=== PATIENT | male | born 1950 | race Caucasian/White ===

== ENCOUNTER 2019-12-07 01:37 | Inpatient (IN) ==
[2019-12-07] MEDS ORDERED: DUONEB (A & A) INH ONE ×2 (01:54→07:40)
--- NOTE | 2019-12-07 02:10 | PROVIDER DOCUMENTATION ---
HPI-Respiratory General - General Chief Complaint: Shortness of Breath Stated Complaint: SOB Time Seen by Provider: 12/07/19 01:53 Source: patient Allergies/Adverse Reactions: Patient Allergies Allergy/AdvReac Type Severity Reaction Status Date / Time iodine Allergy Severe SWELLING Verified 11/18/19 15:02 Home Medications: Home Medication List Medication Instructions Recorded Confirmed Last Taken Type Allopurinol [Zyloprim] 300 mg PO DAILY 12/07/19 12/07/19 Unknown History Codeine Phosphate/Guaifenesin 10 ml PO Q6H PRN PRN 12/07/19 12/07/19 Unknown His tory [Virtussin AC 10-100 mg/5 ml Lq] Levofloxacin [Levaquin] 500 mg PO DAILY 12/07/19 12/07/19 Unknown History - History of Present Illness-Resp Nature of Presenting Problem: Patient is a 69 year old white male with history of COPD, just seen in ER [address] Johansen and noted to have influenza A and lower lobe pneumonia. Patient has already finished Tamiflu and continues to have shortness of breath. Patient saw Dr. Larkin today and started on oral antibiotic for pneumonia. Quality of Pain: reports: aching Onset/Duration: reports: 1 week ago Timing: reports: still present, getting worse Cough Quality/Degree: reports: moderate Similar Symptoms Previously?: No Recently seen or treated by another doctor?: Yes (Dr. Johansen and Dr. Larkin) Review of Systems - Adult - REVIEW OF SYSTEMS - ADULT Constitutional: reports: chills, fever Eyes: reports: no symptoms reported Ears, Nose, Mouth & Throat: reports: see HPI Cardiovascular: denies: chest pain Respiratory: reports: cough, shortness of breath, wheezing Gastrointestinal: reports: no symptoms reported Genitourinary: reports: no symptoms reported Musculoskeletal: reports: muscle aches Integumentary: denies: rash Neurological: reports: no symptoms reported Psychiatric: reports: see HPI, anxiety Endocrine: reports: no symptoms reported Allergic/Immunologic: reports: no symptoms reported All Other Systems: Reviewed and Negative Past History - Adult - PAST MEDICAL HISTORY-ADULT Review of Records: reports: Old Records Reviewed, Nursing Assessment Review, Medications Reviewed, Social history reviewed & non-contributory. Respiratory: reports: pneumonia Gastrointestinal: reports: denies history Musculoskeletal: reports: other (gout) Physical Exam-General - CONSTITUTIONAL General Appearance: alert, mild distress, other (appears ill) - EYES Eyes: other (clear) - HEAD, EARS, NOSE, MOUTH & THROAT HENMT: moist mucous membranes - NECK Neck: supple - RESPIRATORY Respiratory: no respiratory distress, no accessory muscle use, decreased breath sounds, wheezing - CARDIOVASCULAR Cardiovascular: tachycardia - GASTROINTESTINAL (ABDOMEN) Abdominal Exam: non tender, soft, no organomegaly - LYMPHATIC Lymphatic: no adenopathy - MUSCULOSKELETAL Back Exam: normal inspection, no CVA tenderness Extremity: normal range of motion, non-tender - SKIN Integumentary: normal color, warm/dry - NEUROLOGIC Neurologic: grossly normal - PSYCHIATRIC Psych/Mental Status: oriented x 3, anxious Progress - PLAN OF CARE/RESULTS Progress/Plan/Lab Results: Vital Signs - 8 hr 12/07/19 01:41 Temperature 97.5 F L Pulse Rate 113 H Respiratory Rate 20 Blood Pressure 161/91 O2 Sat by Pulse Oximetry 94 L Laboratory Results - last 24 hr 12/07/19 12/07/19 12/07/19 02:10 02:55 02:55 WBC RBC Hgb Hct MCV MCH MCHC RDW Std Deviation Plt Count MPV Immature Gran % (Auto) Neut % (Auto) Lymph % (Auto) [place] % (Auto) Eos % (Auto) Baso % (Auto) Immature Gran # (Auto) Neut # (Auto) Lymph # (Auto) [place] # (Auto) Eos # (Auto) Baso # (Auto) Specimen Type ARTERIAL Sample Site R RADIAL pH 7.35 pCO2 40 pO2 96 HCO3 22.3 Base Excess -3.3 L Oxyhemoglobin 96.1 ABG O2 Sat (Calculated) 22.1 ABG O2 Saturation 98.4 ABG Carboxyhemoglobin 1.40 ABG Methemoglobin 0.9 Prasad Test YES A-a O2 Difference 54.0 Total Hemoglobin 16.3 Lactate 0.80 Liter Flow 2.0 Blood Gas Modality CANNULA FiO2 % 28.0 Sodium 137 Potassium 4.8 Chloride 101 Carbon Dioxide 22 L Anion Gap 14 BUN 20 Creatinine 1.4 H Estimated GFR/1.73 m2 50 BUN/Creatinine Ratio 14 Glucose 116 H Calculated Osmolality 277 Calcium 9.5 Total Bilirubin 0.54 AST 28 ALT 18 Alkaline Phosphatase 82 Puf-[id number]-[id number] Pept Total Protein 8.0 Albumin 3.6 Globulin 4.4 Albumin/Globulin Ratio 0.8 Plasma Lactate 1.1 12/07/19 12/07/19 02:55 02:55 WBC 9.45 RBC 5.10 Hgb 15.4 Hct 47.8 MCV 93.7 MCH 30.2 MCHC 32.2 L RDW Std Deviation 13.6 Plt Count 244 MPV 10.3 Immature Gran % (Auto) 0.2 Neut % (Auto) 71.5 Lymph % (Auto) 14.1 L [place] % (Auto) 7.5 Eos % (Auto) 6.3 Baso % (Auto) 0.4 Immature Gran # (Auto) 0.02 Neut # (Auto) 6.75 H Lymph # (Auto) 1.33 [place] # (Auto) 0.71 H Eos # (Auto) 0.60 Baso # (Auto) 0.04 Specimen Type Sample Site pH pCO2 pO2 HCO3 Base Excess Oxyhemoglobin ABG O2 Sat (Calculated) ABG O2 Saturation ABG Carboxyhemoglobin ABG Methemoglobin Prasad Test A-a O2 Difference Total Hemoglobin Lactate Liter Flow Blood Gas Modality FiO2 % Sodium Potassium Chloride Carbon Dioxide Anion Gap BUN Creatinine Estimated GFR/1.73 m2 BUN/Creatinine Ratio Glucose Calculated Osmolality Calcium Total Bilirubin AST ALT Alkaline Phosphatase Rwh-G-Bvitjazfsap Pept 39 Total Protein Albumin Globulin Albumin/Globulin Ratio Plasma Lactate Orders Category Date Time Status NEWS Score 2-4:Order NEWS Lactate Series NOW Care 12/07/19 01:46 Active Saline Loc NOW Care 12/07/19 01:54 Active CHEST-2 VIEWS [RAD] Stat Exams 12/07/19 01:54 Taken ABG [RESP] Routine Lab 12/07/19 02:10 Completed BLOOD CULTURE [BLDCUL] Stat Lab 12/07/19 03:00 Results CBC WITH DIFF [HEME] Stat Lab 12/07/19 02:55 Completed COMPREHENSIVE METABOLIC PANEL [CHEM] Stat Lab 12/07/19 02:55 Completed LACTATE, PLASMA [CHEM] Stat Lab 12/07/19 02:55 Completed PRO B-NATRIURETIC PEPTIDE Stat Lab 12/07/19 02:55 Completed Albuterol 2.5MG/Ipratrop 0.5MG [Duoneb (A & A)] Med 12/07/19 01:54 Discontinued 3 ml INH NOW ONE Methylprednisolone Sod Succ [Solu-Medrol] Med 12/07/19 04:29 Discontinued 125 mg IV STAT ONE Aerosol Treatments Routine Oth 12/07/19 01:54 Completed Aerosol Treatments Stat Oth 12/07/19 01:54 Completed Pulse Oximetry Stat Oth 12/07/19 01:54 Completed Result Diagrams: 12/07/19 02:55 12/07/19 02:55 - REASSESSMENT Reassessment #1 Time Reassessed: 04:25 Status: unchanged Reassessment Comment: continues to wheeze - EKG 1 Time of EKG reading by physician:: 02:05 EKG Read and Signed by:: Marko Gomez Rate: 113 Rhythm: sinus tach QRS: RBB Comments: no STEMI - XRAY 1 XRAY Study: Chest XRAY Interpretation: NAD - CONSULTS/PCP/HOSPITALIST Notification #1 *Consult/PCP/Hospitalist*: Dr. Rodas, hospitalist Time Discussed: 04:30 Consult Disposition: Admit Departure - Departure Date of Disposition Decision: 12/07/19 Time of Disposition Decision: 04:33 DIAGNOSIS: COPD exacerbation Disposition: ADMITTED INPATIENT 09 Certified Medical Emergency: Emergent Condition: Stable Referrals and Follow-Ups: Gabe Larkin MD [Primary Care Provider] - - Critical Care Note This patient required my direct & personal management of CC.: No Attestation - Physician/ TERRELL Attestation Patient care was provided by Advanced Practice Provider:: No The physician spent face to face time with patient:: Yes Advanced Practice Provider documentation review:: Supervising physician onsite and consulted in the evaluation and care of this patient. The physician did have a face to face encounter with the patient.
[2019-12-07 02:17] LABS: ALLEN TEST YES; BE -3.3 mmoll (-3.0-3.0); BLOOD TYPE ARTERIAL; HCO3-(ACT) 22.3 mmoll (20.0-26.0); METHB 0.9 % (0.0-1.5); O2(CT) 22.1 mL/dL (15.0-23.0); O2HB 96.1 % (95.0-99.0); PCO2(98.6) 40 mmHg (35-45); PO2(98.6) 96 mmHg (60-100); SAMPLE BLOOD; SAO2 98.4 % (95.0-100.0); THB 16.3 g/dL (11.5-17.4); pH(98.6) 7.35 (7.35-7.45)
[2019-12-07 02:18] LABS: MODALITY CANNULA
[2019-12-07 04:03] LABS: BASO# 0.04 X1000 (0.0-0.2); BASO% 0.4 % (0.0-0.8); EOS% 6.3 % (0.0-10.0); HEMATOCRIT 47.8 % (42.0-52.0); HEMOGLOBIN 15.4 g/dL (14.0-18.0); IMM GRAN# 0.02 X1000 (0.0-0.04); IMM GRAN% 0.2 % (0.0-0.5); LYMPH# 1.33 X1000 (1.2-3.4); LYMPH% 14.1 % (20.5-51.1); MCH 30.2 PG (27-31); MCHC 32.2 g/dL (33-37); MCV 93.7 FL (81-99); MONO# 0.71 X1000 (0.11-0.59); MONO% 7.5 % (1.7-9.3); MPV 10.3 FL (7.4-10.4); NEUT# 6.75 X1000 (1.4-6.5); NEUT% 71.5 % (42.2-75.2); PLT 244 X1000 (130-400); RDW 13.6 % (11.5-14.5); WBC 9.45 X1000 (4.8-10.8)
[2019-12-07 04:18] LABS: ALB/GLOB RATIO 0.8; ALBUMIN 3.6 g/dL (3.5-5.0); CALCIUM 9.5 mg/dL (8.8-10.2); CREATININE 1.4 mg/dL (0.7-1.2); POTASSIUM 4.8 mmol/L (3.5-5.1); TOTAL BILIRUBIN 0.54 mg/dL (0.20-1.00)
[2019-12-07] MEDS ORDERED: SOLU-MEDROL IV ONE (04:29)
--- NOTE | 2019-12-07 05:32 | Diag Imaging Result Doc PS360 ---
EXAM: CHEST-2 VIEWS HISTORY: cough TECHNIQUE: Two views COMPARISON: 11/29/2019 FINDINGS: The lungs are hyperexpanded. The heart is not enlarged. The vessels are small. There are no infiltrates. No pleural effusions. IMPRESSION: No pneumonia Electronically signed by Pawan Wiley 12/07/2019 5:29 AM
--- NOTE | 2019-12-07 07:46 | EKG Report ---
Test Performed on : 12/07/2019 02:04:20 AM Test Reason : ER Blood Pressure : / mmHG Vent. Rate : 113 BPM Atrial Rate : 113 BPM P-R Int : 192 ms QRS Dur : 096 ms QT Int : 308 ms P-R-T Axes : 075 224 051 degrees QTc Int : 422 ms Sinus tachycardia. Right superior axis deviation Incomplete right bundle branch block Right ventricular hypertrophy Abnormal ECG No previous ECGs available Unconfirmed Result
[2019-12-07 08:43] LABS: INR 1.06; PROTIME 13.9 Seconds (11.0-16.0)
[2019-12-07] MEDS ORDERED: ZOFRAN IV PRN (08:45)
[2019-12-07] MEDS ORDERED: TYLENOL PO PRN (08:45)
[2019-12-07] MEDS ORDERED: ROBITUSSIN-AC PO PRN (08:50)
[2019-12-07 09:12] LABS: CK INDEX 2.7 (0.0-2.5); CK-MB 12.37 ng/mL (0.0-5.0)
[2019-12-07] MEDS ORDERED: NS 1,000 ML IV SCH (09:15)
--- NOTE | 2019-12-07 09:44 | Diag Imaging Result Doc PS360 ---
CT THORAX W/O CONTRAST - 12/07/2019 INDICATION: Dyspnea,Wheezing,crackles,recent PNA and Flu COMPARISON: Previous chest x-rays FINDINGS: There is no adenopathy. Heart and great vessels are normal. There is mild COPD. Mild diffuse bronchitis. No infiltrates or masses. Upper abdominal images are unremarkable. There are moderate degenerative changes of the spine. No acute or suspicious bony lesion. IMPRESSION: COPD with chronic bronchitis. This exam was performed using automated exposure control, adjustment of mA or kV according to patient size, and/or use of iterative reconstruction technique Electronically signed by Marcelo Meek 12/07/2019 9:41 AM
[2019-12-07 11:41] LABS: CK-MB 12.07 ng/mL (0.0-5.0)
[2019-12-07 11:47] LABS: URINE SOURCE CLEAN CATCH
[2019-12-07 11:50] LABS: BILIRUBIN URINE NEGATIVE (NEGATIVE); BLOOD URINE NEGATIVE (NEGATIVE); COLOR YELLOW; GLUCOSE URINE NEGATIVE (NEGATIVE); KETONE URINE NEGATIVE (NEGATIVE); LEUKOCYTES URINE NEGATIVE (NEGATIVE); NITRITE URINE NEGATIVE (NEGATIVE); PH URINE 5.5; PROTEIN URINE 70 mg/dL (NEGATIVE); SP GRAVITY URINE 1.023; TURBIDITY URINE CLEAR (CLEAR); UROBILINOGEN URINE NORMAL (NORMAL)
[2019-12-07 11:51] LABS: UR EPITHELIAL CELLS <10 /HPF (<10); URINE BACTERIA NEGATIVE /HPF; URINE RBC <10 /HPF (<10); URINE WBC <10 /HPF (<10)
[2019-12-07] MEDS: DUONEB (A & A) INH SCH ×4 (12:03→23:23)
--- NOTE | 2019-12-07 13:26 | PROGRESS NOTE ---
DATE: 12/07/2019 SUBJECTIVE: The patient is still complaining of shortness of breath but compared with admission, it looks like he is feeling just a little bit better. We did a CT scan of the chest that showed COPD with chronic bronchitis. Recently, he was started on treatment for pneumonia. He is tachycardic. He has been tachypneic on and off. He is on oxygen at this moment as well. Apparently, he is having respiratory problems since the end of October 2019. He has been visiting multiple doctors afterwards. He has been getting treatment mostly with antibiotics, but it looks like this has not been working. He has been placed on steroids but he is still wheezing a lot, so I will increase the dose from 40 q.12 hours to q6h also, I will put him on antibiotics. I will start with Zosyn and I will keep an eye on him. He has been placed on respiratory treatment as well. PHYSICAL EXAMINATION: Vital signs: Temperature 97.8 degrees, pulse 101, respiratory rate 19, blood pressure 154/97, oxygen saturation 97% on 3 L of nasal cannula. HEENT: Head normocephalic, no trauma. PERRLA. Neck: Supple. No JVD. No masses. Central trachea. Chest: Decreased breath sounds globally with prolonged expiratory phase and inspiratory and expiratory wheezing, some crepitus at the bases. Abdomen: Soft, protuberant, nontender, nondistended. No hepatosplenomegaly. Genitourinary: As per the patient, he has been having problems urinating, a little bit of redness in the gland of the penis, but I do not see any pus or infection. Extremities: No edema, no clubbing, no cyanosis. Neurological: Patient is awake, he is alert, he is oriented x3. No focal neurological deficits. LABORATORY DATA: WBC 9.4, hemoglobin 15.4, hematocrit 47.8, platelets 244,000. Sodium 137, potassium 4.8, chloride 101, bicarbonate 22, BUN 20, creatinine 1.4, glucose 116, calcium 9.5. ASSESSMENT AND PLAN: 1. Acute hypoxemic respiratory failure. Continue with oxygen supplementation, breathing treatment, pulmonary toilet, likely due to bronchitis and/or chronic obstructive pulmonary disease exacerbation. This patient has never been diagnosed with chronic obstructive pulmonary disease before but he used be a smoker, as per the patient, he smoked for at least 25 years and about less than 1 pack a day. 2. Possible chronic obstructive pulmonary disease exacerbation and bronchitis. As above, continue with antibiotics, breathing treatments, oxygen supplementation and steroids. 3. History of tobacco use. This patient stopped smoking a long time ago, I think in the . 4. Gout, stable. He is on allopurinol at home which I will continue. 5. History of multiple history of previous urinary tract infections. As per the patient, he had a couple surgeries before on his penis, and he has been having some problems urinating. Likely this patient will need to be evaluated by Urology Department either inpatient or outpatient. Urinalysis completely normal. 6. The patient will be transferred to the medical floor. Continue with the same management. He will need to follow up with Pulmonary Department as an outpatient as well to do a PFT and probably do a sleep study. cc: Michael Chavez MD MTDD
[2019-12-07 14:06] LABS: BASO# 0.01 X1000 (0.0-0.2); BASO% 0.2 % (0.0-0.8); EOS# 0.02 X1000 (0.0-0.7); EOS% 0.4 % (0.0-10.0); HEMATOCRIT 46.3 % (42.0-52.0); HEMOGLOBIN 14.9 g/dL (14.0-18.0); LYMPH# 0.58 X1000 (1.2-3.4); MCH 30.3 PG (27-31); MCHC 32.2 g/dL (33-37); MCV 94.1 FL (81-99); MONO# 0.07 X1000 (0.11-0.59); MONO% 1.6 % (1.7-9.3); MPV 10.4 FL (7.4-10.4); NEUT# 3.77 X1000 (1.4-6.5); NEUT% 84.8 % (42.2-75.2); PLT 244 X1000 (130-400); RBC 4.92 XMIL (4.7-6.1); RDW 13.7 % (11.5-14.5); WBC 4.45 X1000 (4.8-10.8)
[2019-12-07] MEDS: ZOSYN 3.375 GM in NS 50 ML IV SCH ×2 (14:19→21:10)
[2019-12-07] MEDS: SOLU-MEDROL IV SCH ×2 (14:19→21:11)
[2019-12-07 14:54] LABS: ALBUMIN 3.8 g/dL (3.5-5.0); CALCIUM 9.7 mg/dL (8.8-10.2); CREATININE 1.5 mg/dL (0.7-1.2); POTASSIUM 4.9 mmol/L (3.5-5.1); TOTAL BILIRUBIN 0.34 mg/dL (0.20-1.00); TOTAL PROTEIN 7.5 g/dL (6.3-8.3)
[2019-12-07 14:55] LABS: PTT 26.4 Seconds (22.3-41.8)
[2019-12-07 14:56] LABS: PROTIME 13.3 Seconds (11.0-16.0)
[2019-12-07 15:32] LABS: CK INDEX 3.2 (0.0-2.5); CK-MB 11.58 ng/mL (0.0-5.0)
--- NOTE | 2019-12-07 15:46 | Diag Imaging Result Doc PS360 ---
CHEST-1 VIEW - 12/07/2019 3:25 PM INDICATION: increased lactate COMPARISON: 2:18 AM FINDINGS: The lungs are normally expanded and clear. Heart size and mediastinal contours are normal. No pneumothorax or pleural effusion. IMPRESSION: Negative exam. Electronically signed by Marcelo Meek 12/07/2019 3:44 PM
[2019-12-07] MEDS ORDERED: SOLU-MEDROL IV SCH (16:30)
[2019-12-07 17:07] LABS: BASO# 0.01 X1000 (0.0-0.2); BASO% 0.2 % (0.0-0.8); EOS# 0.02 X1000 (0.0-0.7); EOS% 0.5 % (0.0-10.0); HEMOGLOBIN 14.8 g/dL (14.0-18.0); IMM GRAN# 0.02 X1000 (0.0-0.04); IMM GRAN% 0.5 % (0.0-0.5); LYMPH# 0.66 X1000 (1.2-3.4); LYMPH% 16.1 % (20.5-51.1); MCH 30.8 PG (27-31); MCHC 32.9 g/dL (33-37); MCV 93.8 FL (81-99); MONO% 2.4 % (1.7-9.3); MPV 10.5 FL (7.4-10.4); NEUT# 3.29 X1000 (1.4-6.5); NEUT% 80.3 % (42.2-75.2); PLT 256 X1000 (130-400); RDW 13.7 % (11.5-14.5)
[2019-12-07 17:36] LABS: ALB/GLOB RATIO 1.1; ALBUMIN 3.8 g/dL (3.5-5.0); CALCIUM 9.4 mg/dL (8.8-10.2); CREATININE 1.5 mg/dL (0.7-1.2); POTASSIUM 5.1 mmol/L (3.5-5.1); TOTAL BILIRUBIN 0.38 mg/dL (0.20-1.00); TOTAL PROTEIN 7.3 g/dL (6.3-8.3)
[2019-12-07 17:41] LABS: INR 1.02; PROTIME 13.6 Seconds (11.0-16.0); PTT 27.5 Seconds (22.3-41.8)
[2019-12-07 18:24] LABS: CK INDEX 3.3 (0.0-2.5); CK-MB 10.57 ng/mL (0.0-5.0)
[2019-12-07 20:39] LABS: CK INDEX 3.4 (0.0-2.5); CK-MB 9.43 ng/mL (0.0-5.0)
[2019-12-08] MEDS: SOLU-MEDROL IV SCH ×3 (03:10→20:40)
[2019-12-08] MEDS: ZOSYN 3.375 GM in NS 50 ML IV SCH ×4 (03:10→20:40)
[2019-12-08] MEDS: DUONEB (A & A) INH SCH ×5 (03:32→21:01)
--- NOTE | 2019-12-08 04:53 | HISTORY AND PHYSICAL ---
PRIMARY CARE PROVIDER: Dr. Gabe Larkin. CHIEF COMPLAINT: Shortness of breath. HISTORY OF PRESENT ILLNESS: Mr. Rodas is a 69-year-old, male who presented to the ER this morning with complaints of shortness of breath. The patient states that his symptoms initially began a few weeks ago. The patient was seen in the ER on 11/18/2019 initially, he was diagnosed with pneumonia and a urinary tract infection. At that time, it looks as though he only got discharged with a prescription for Bactrim. The patient did return to the ER on 29 of November with similar symptoms and was diagnosed with influenza B. He was given prescriptions at that time for Tamiflu, Tessalon Perles, and Ventolin HFA inhaler. The patient states that since this time his symptoms have continued and he did ultimately go to Dr. Larkin's office yesterday and was given prescription for Levaquin. The patient states that throughout this time he has continued to have problems with shortness of breath. This is definitely worse with exertion, though he is having shortness of breath at rest now. He does complain of some orthopnea, but denied any paroxysmal nocturnal dyspnea. He has reported a cough. He states that he feels like it is a dry cough but the patient does audibly sound congested, but he states he is not able to produce sputum. He feels like he is coughing but can't get his sputum up. He denies any fever, body aches, or chills. He denies any history of any lung disease such as COPD, emphysema, or ever having to wear oxygen. The patient was only mildly hypoxic. He was documented be 94% on room air, though with nasal cannula at 2 L he is 96% to 97%. He has been only mildly tachycardic since arrival in the high 90s and low 100s. He denied any dizziness, chest pain. He denied any abdominal pain, abdominal distention, or swelling. He denies any nausea, vomiting, or diarrhea. The patient denies any dysuria or urinary frequency, though does state that his urine still is dark in color. He did report that he recently had a urinary tract infection. The patient bilateral lower extremities did seem slightly swollen, though they were not edematous. There was some slight red-purplish discoloration. The patient states that this is not of new onset, has been present for quite some time. This has not worsened recently. Though pulse, motor and sensory is intact in all extremities. Radial pulses were 2+ bilaterally. Pedal pulses were 1+ bilaterally. Capillary refill was less than 3 seconds. Upon arrival to the ER, they did give the give the patient a duo neb treatment and 125 mg of Solu- Medrol IV. The patient states he does feel slightly better, though upon my arrival into the room, he was sitting on the side of the bed, sitting up and he still was complaining of shortness of breath. Given this, we did order an additional duo neb treatment. The patient has a chest x-ray performed in the ER, did not show any abnormalities but did note the lungs were hyperexpanded. Though the heart was not enlarged, the vessels were small. There were no infiltrates or pleural effusions. There was no pneumonia noted. Though upon auscultation, the patient does have inspiratory and expiratory wheezing noted. He also did have rhonchi and crackles noted in bilateral bases. Given his persistent symptoms and lung sounds, I did do a CT thorax without contrast. It did show a COPD with chronic bronchitis, though there were no infiltrates or masses noted. He has been afebrile. There is no leukocytosis noted. His CK, enzymes and troponin were slightly elevated. The patient is denying any chest pain. EKG showed a sinus tachycardia with incomplete right bundle branch block at a rate of 113 with a QTc of 422. At this time, the patient will be placed for admission for further treatment and evaluation of his COPD exacerbation. REVIEW OF SYSTEMS: A 14-point review of systems was conducted with the patient and all were negative, except for pertinent positives mentioned above in the HPI. PAST MEDICAL HISTORY: 1. Gout. 2. Chronic kidney disease. PAST SURGICAL HISTORY: 1. Left knee arthroscopy. 2. History of having surgical biopsies obtained from foreskin for history of balanitis by Dr. Yeung. SOCIAL HISTORY: The patient is a former smoker. He did smoke half a pack a day for a period of 20 to 25 years. He quit smoking in his mid 40s. He denied any alcohol or illicit drug use. The patient is . His was present at bedside during my examination. FAMILY HISTORY: Positive for his mother having history of heart disease, pacemaker and hypertension. ALLERGIES: Patient has allergies to iodine and shellfish. HOME MEDICATIONS: 1. Allopurinol 300 mg p.o. daily. 2. Virtussin AC 10-100-5 mL liquid, 10 mL p.o. q.6 hours p.r.n. 3. Levaquin 500 mg p.o. daily. DIAGNOSTIC DATA/LABORATORY RESULTS: White blood cell count is 9450, hemoglobin 15.4, hematocrit 47.8, platelet count is 244,000. PT is 13.9, INR 1.06, PTT is 29. Sodium 137, potassium 4.8, chloride 101, serum bicarb is 22, BUN 20, creatinine 1.4 with GFR of 4. Glucose is 116, calcium is 9.5. Liver function tests within normal limits. CK 451, CK index is 2.7, CK-MB 12.37. Troponin T sensitivity is 31. ProBNP is 39. Arterial blood gases were obtained on nasal cannula at 2 L at FiO2 of 28%, with pH 7.35, pCO2 of 40, PO2 of 96, HCO3 of 22.3, with a base excess of - 3.3, O2 saturation 98.4%. Urinalysis obtained via clean catch, was positive for protein. EKG showed sinus tachycardia with an incomplete right bundle branch block, right ventricular hypertrophy at a rate of 113 with a QTc of 422. Chest x-ray showed no acute abnormalities. CT thorax showed COPD with chronic bronchitis, though no infiltrates or masses present. PHYSICAL EXAMINATION: VITAL SIGNS: Temperature 97.8 degrees, heart rate 109, respirations 24, blood pressure a 128/93, oxygen saturation is 96% on nasal cannula at 2 L. GENERAL: Mr. Rodas is a pleasant, 69-year-old male, he was sitting on the side of the ER stretcher. Though he is not in any respiratory distress, the patient was complaining of some shortness of breath and stated this helped him feel better. HEENT: Head is atraumatic, normocephalic. Pupils are equal, round, reactive to light, were 3 mm bilaterally and brisk. Oral mucosa is moist. Oropharynx clear. NECK: Supple. Trachea midline. CARDIOVASCULAR: Patient has S1 and S2 present. No murmurs, gallops, rubs appreciated with a regular rate and rhythm. PULMONARY: Patient has symmetrical chest expansion bilaterally. Lung sounds in bilateral upper ureña did have inspiratory and expiratory wheezing noted. He did have crackles and rhonchi noted in bilateral bases. ABDOMEN: Soft, nontender. Does appear to be distended. The patient does have a slightly protuberant abdomen noted. He was nontender upon palpation. Bowel sounds were present in all 4 quadrants. EXTREMITIES: No cyanosis or edema present. The patient did not report any worsening leg swelling. His legs do appear to be slightly swollen. There was a reddish purplish discoloration. The patient states this was not a new onset either. Though pulse, motor and sensory were intact in all extremities. Radial pulses were 2+ bilaterally. Pedal pulses were 1+ bilaterally. Capillary refill is less than 3 seconds. INTEGUMENTARY: Patient's skin is pink, warm, and dry. NEUROLOGICAL: Patient is alert and oriented to person, place, time, and situation. He is able to move all extremities. There are no focal neurological deficits noted. ASSESSMENT AND PLAN: 1. Chronic obstructive pulmonary disease exacerbation. For this, we will continue with supplemental oxygen, aggressive pulmonary toilet with incentive spirometry, frequent encouragement to turn, cough and deep breathe. We will do IV steroids, scheduled duo neb treatments. We will also add on some Robitussin AC as well. Blood cultures have been obtained. Sputum culture has been ordered as well. We will continue to monitor the patient's respiratory status closely. 2. Hypoxia. This is mild. The patient reports that he does not require any oxygen at home. He is maintaining adequate oxygen saturations on nasal cannula at 2 L. 3. Chronic kidney disease. The patient does report history of this. I did only have 1 previous labs to compare his current renal function to, which was drawn approximately a month ago. His creatinine was 1.7. At this time, his creatinine is 1.4, this is an improvement, though again, I do not know what his baseline creatinine level is. We will avoid nephrotoxic medications and renally dose medicines as necessary. We will continue to follow. 4. Elevated cardiac enzymes. The patient is not reporting any chest pain. Upon recheck, his CK and troponin are trending down. We will continue to monitor this closely. 5. Rule out possible urinary tract infection. The patient is reporting some dark discoloration to his urine. He did report a recent urinary tract infection for which he was treated with Bactrim. He is not reporting any dysuria. We are going to obtain a urinalysis. We will await those results and continue to follow. The patient was placed on the medical floor with telemetry. He will have vital signs q.4 hours. Do strict intake and output. He will be on a regular diet. We will complete a series of cardiac enzymes. We will provide full IV hydration. We will do 1 L normal saline bolus to gently infuse at 75 mL per hour. Further orders and recommendations pending hospital course, diagnostic studies, and physician evaluation. Dictated by MARCO ANTONIO Green for Adair Rodas MD cc: MD Gabe Garcia MD
[2019-12-08] MEDS: ZYLOPRIM PO SCH (08:13)
[2019-12-08 08:59] LABS: CREATININE 1.6 mg/dL (0.7-1.2)
[2019-12-08 09:00] LABS: BASO# 0.01 X1000 (0.0-0.2); BASO% 0.1 % (0.0-0.8); HEMATOCRIT 44.1 % (42.0-52.0); HEMOGLOBIN 13.9 g/dL (14.0-18.0); IMM GRAN# 0.02 X1000 (0.0-0.04); IMM GRAN% 0.2 % (0.0-0.5); LYMPH# 0.89 X1000 (1.2-3.4); LYMPH% 7.7 % (20.5-51.1); MCH 30.2 PG (27-31); MCHC 31.5 g/dL (33-37); MCV 95.7 FL (81-99); MONO# 0.63 X1000 (0.11-0.59); MONO% 5.4 % (1.7-9.3); MPV 10.1 FL (7.4-10.4); NEUT# 10.02 X1000 (1.4-6.5); NEUT% 86.6 % (42.2-75.2); PLT 238 X1000 (130-400); RBC 4.61 XMIL (4.7-6.1); RDW 13.8 % (11.5-14.5); WBC 11.57 X1000 (4.8-10.8)
[2019-12-08 09:31] LABS: LARGE PLATELETS 2+; LYMPHS 6 % (21-51); MONO 2 % (1-9); SEGS 92 % (42-75)
--- NOTE | 2019-12-08 15:49 | PROGRESS NOTE ---
DATE: 12/08/2019 SUBJECTIVE: The patient seems to be feeling better today. He is still having wheezing and some shortness of breath but compared with yesterday, he is better. As per the patient, he has been having antibiotics since the beginning of October, multiple of them. Also apparently he received a shot of steroids at some point before coming to the hospital. I do believe he has a COPD exacerbation based on the images and the physical exam. He will need to be monitored by a cooler worker and I have requested an evaluation by Dr. Núñez, which likely will follow this patient up as an outpatient. I will decrease the dose of the steroids today since he is getting better. OBJECTIVE: Vital Signs: Temperature 98 degrees, pulse 110, respiratory rate 18, blood pressure 129/57, oxygen saturation 95% on 3 L of nasal cannula. HEENT: Head normocephalic. No trauma. PERRLA. Neck: Supple. No JVD. No masses. Central trachea. Chest: Decreased breath sounds globally with prolonged expiratory phase and end expiratory wheezing, mostly at the bases. Abdomen: Soft, protuberant, nontender, nondistended. No hepatosplenomegaly. Extremities: No edema. No clubbing. No cyanosis. Neurological: This patient is awake, alert. He is oriented x3. No focal neurological deficits. LABORATORY: WBC 11.5, hemoglobin 13.9, hematocrit 44.1, platelets 238,000. Sodium 138, potassium 5, chloride 101, bicarbonate 25, BUN 28, creatinine 1.6, glucose 158, calcium 9. ASSESSMENT AND PLAN: 1. Acute hypoxemic respiratory failure. This is likely a combination of chronic obstructive pulmonary disease exacerbation and bronchitis. I will continue with oxygen supplementation, breathing treatment, pulmonary toilet. 2. Likely chronic obstructive pulmonary disease exacerbation with bronchitis. Continue with antibiotics, breathing treatments, oxygen supplementation, steroids which I have decreased from 40 q.6 hours to 40 q.12 hours. 3. History of tobacco use. He stopped smoking a long time ago, I think in the , but he used to smoke for 20+ years. 4. History of gout. Continue with the same management. 5. History of previous urinary tract infections. As per the patient, he had a couple surgeries before on his penis. He will need to follow up with Urology Department as an outpatient. 6. Likely chronic kidney disease. We will need to monitor that closely. He came by on 11/18/2019 and the creatinine was 1.7. Today it is 1.6. He has been eating and drinking, but not too much. His urine output is adequate. I talked to the patient about this. His son was at the bedside and I suggested to follow up with Nephrology Department as an outpatient, especially if his kidney function was normal before. 7. Deep vein thrombosis prophylaxis with Lovenox. cc: Michael Chavez MD
[2019-12-08] MEDS: LOVENOX SUBQ SCH (17:40)
--- NOTE | 2019-12-08 23:00 | PULMONOLOGY CONSULTATION ---
DATE: 12/08/2019 REQUESTING CLINICIAN: Dr. Kilpatrick. REASON FOR CONSULTATION: COPD with respiratory failure. HISTORY OF PRESENT ILLNESS: Mr. Rodas is a 69-year-old male with a 56-[id number]-lcdg history for tobacco who reports he was doing well until the end of October. The patient developed a pneumonia and was improving and then about 2 weeks ago developed influenza. He did have the routine influenza vaccine. He subsequently has developed increased cough with increased sputum production. He went to see Dr. Larkin and received Levaquin, but only took 1 dose and then came to the emergency room later in the evening due to increasing shortness of breath. He continues to have a cough with grossly purulent sputum production. He underwent a CT scan of the thorax which revealed diffuse bronchitis. Sputum culture has been collected and is pending. PAST MEDICAL HISTORY: 1. Gout. 2. Obesity. 3. Status post knee surgery. SOCIAL HISTORY: The patient has a 83-qcin-zxli history for tobacco. He has not smoked for many years. He was working up until this most recent illness. FAMILY HISTORY: Positive for heart disease and hypertension. REVIEW OF SYSTEMS: As noted in the HPI. PHYSICAL EXAMINATION: General: Reveals a well-developed, well-nourished male resting comfortably and in no distress. Vital signs: Blood pressure 136/63, heart rate 100, respiratory rate 20, oxygen saturation 100% on 3 L per nasal cannula. HEENT: Pupils are equal and reactive. Oropharynx is clear. Neck: Supple. Chest: Reveals scattered rhonchi bilaterally. Cardiac Exam: S1-S2. Abdomen: Obese and soft. Extremities: Without edema. LABORATORIES: Blood cultures to date are negative. Sputum culture is pending. White blood count is 11.57, hemoglobin 13.9, platelet count 238,000. IMPRESSION: A 69-year-old with 1. Acute bronchitis. 2. Acute hypoxemic respiratory failure. 3. Obesity. 4. History of tobacco use. DISCUSSION: A 69-year-old with problems outlined above. Presentation may be related to recurrent airway injury associated with bronchitis and influenza. He continued to have a grossly purulent sputum production. The patient is at risk for chronic obstructive pulmonary disease, but has not undergone formal testing. He has received his influenza vaccine, but is not certain that he has received both of his pneumococcal vaccines. RECOMMENDATIONS: 1. Continue current antibiotic pending results of sputum culture. 2. Continue bronchodilators. 3. Recommend transitioning to oral steroids with a rapid taper. 4. Recommend outpatient pulmonary function tests in 4 to 6 weeks. 5. Recommend exercise and weight loss. cc: Clark Núñez MD MTDD
[2019-12-09] MEDS: DUONEB (A & A) INH SCH ×6 (00:35→20:10)
[2019-12-09] MEDS: ZOSYN 3.375 GM in NS 50 ML IV SCH ×4 (02:43→22:15)
--- NOTE | 2019-12-09 07:34 | Diag Imaging Result Doc PS360 ---
EXAM: SINUSES 12/09/2019 HISTORY: sinus congestion TECHNIQUE: Sinus series 3 views COMMENT: There is a mucous retention cyst in the right frontal sinus. There may be some mucosal thickening or mucous retention cyst formation in the left maxillary sinus. There are no air-fluid levels. No evidence of acute bony abnormalities are present. The Lorenzo view is suboptimal. IMPRESSION: No evidence of acute disease. Electronically signed by Johnnie Little 12/09/2019 7:31 AM
[2019-12-09] MEDS: ZYLOPRIM PO SCH (08:05)
[2019-12-09] MEDS: SOLU-MEDROL IV SCH ×2 (08:05→22:15)
[2019-12-09 08:36] LABS: BASO# 0.01 X1000 (0.0-0.2); BASO% 0.1 % (0.0-0.8); EOS# 0.04 X1000 (0.0-0.7); EOS% 0.3 % (0.0-10.0); HEMATOCRIT 42.9 % (42.0-52.0); HEMOGLOBIN 13.6 g/dL (14.0-18.0); IMM GRAN# 0.04 X1000 (0.0-0.04); IMM GRAN% 0.3 % (0.0-0.5); LYMPH# 1.26 X1000 (1.2-3.4); LYMPH% 8.2 % (20.5-51.1); MCH 30.7 PG (27-31); MCHC 31.7 g/dL (33-37); MCV 96.8 FL (81-99); MONO# 0.77 X1000 (0.11-0.59); MPV 10.3 FL (7.4-10.4); NEUT# 13.34 X1000 (1.4-6.5); NEUT% 86.1 % (42.2-75.2); PLT 230 X1000 (130-400); RBC 4.43 XMIL (4.7-6.1); RDW 13.9 % (11.5-14.5); WBC 15.46 X1000 (4.8-10.8)
[2019-12-09 09:09] LABS: CALCIUM 8.8 mg/dL (8.8-10.2); CREATININE 1.7 mg/dL (0.7-1.2); POTASSIUM 5.1 mmol/L (3.5-5.1)
[2019-12-09 09:15] LABS: ANISOCYTOSIS 1+; LYMPHS 8 % (21-51); MONO 5 % (1-9); SEGS 87 % (42-75)
[2019-12-09 11:53] LABS: HEMOGLOBIN A1C 5.7 % (4.8-6.0)
[2019-12-09] MEDS: LOVENOX SUBQ SCH (14:45)
--- NOTE | 2019-12-09 16:53 | PROGRESS NOTE ---
DATE: 12/09/2019 SUBJECTIVE: This morning Mr. Rodas refers to be doing well. He is he said his breathing has significantly improved. The was at the bedside at the time of the encounter. OBJECTIVE: Vital signs: Blood pressure is 129/66, pulse of respirations 16, temperature is 98.1 degrees. General: Mr. Rodas is a 69-year-old gentleman. He is in bed in no distress. Mucosa is pink and moist. Anicteric. Acyanotic. Neck: Supple. Chest: Air entry is bilaterally reduced, especially to the bases. A few distant expiratory wheezing but no crackles. Cardiovascular: Regular rate and rhythm. No murmurs, no rubs, no gallops. Abdomen: Soft, nontender. Bowel sounds present. Extremities: No pedal edema. REAL ESTATE LISTING CONSULTANT: Patient is awake, alert, oriented. There is no focal deficit. LABORATORY DATA: WBC is 15.46, hemoglobin is 13.6, platelet count of 230. Chemistry is also reviewed. Creatinine is 1.7. IMAGING STUDIES: Have all been reviewed. ASSESSMENT: 1. Acute hypoxemic respiratory failure. 2. Suspected chronic obstructive pulmonary disease with exacerbation. 3. History of tobacco use and abuse. The patient did stop about 20 years ago. 4. Renal failure, presumably chronic. The patient's creatinine is about 1.7 today. We are going to do a urinalysis. We will also get a renal ultrasound to rule out any obstructive uropathy and go from there. 5. History of gout. The patient is on allopurinol. We will check on the uric acid level. 6. Recently treated for influenza B. cc: Terrence Mclean MD
--- NOTE | 2019-12-09 21:41 | PULMONOLOGY PROGRESS NOTE ---
DATE: 12/09/2019 SUBJECTIVE: The patient is awake, alert, and conversant. He has been ambulating in the hallway. He continues to have a cough, but his sputum appears less purulent. OBJECTIVE: Vital Signs: The patient has been afebrile for the last 24 hours. Blood pressure 124/57, heart rate 92, respiratory rate 13, oxygen saturation 95% on 3 L per nasal cannula. HEENT: Pupils are equal and reactive. Oropharynx appears clear. Neck: Is supple. Chest: Reveals occasional rhonchi bilaterally with out significant wheezing. Cardiac exam: S1-S2. Abdomen: Is soft and obese. Extremities: Without edema. LABORATORIES: Microbiology reveals normal светлана/sparse growth. White blood count 15.46, hemoglobin 13.6, platelet count 230,000. Sodium 136, potassium 5.1, chloride 101, bicarbonate 24, BUN 38, creatinine 1.7. IMPRESSION: A 69-year-old with 1. Acute bronchitis. 2. Acute hypoxemic respiratory failure. 3. Obesity. 4. History of tobacco use. PLAN: 1. Continue current antibiotic regimen. 2. Continue steroids. 3. Continue bronchodilators. 4. Consider discharge home over the weekend. If no additional culture data is available, would consider using dual coverage covering gram negative and gram positive organisms. Would consider a 10-day course of Levaquin and doxycycline. 5. At the time of discharge, recommend a 2 week steroid taper. cc: Clark Núñez MD
[2019-12-10] MEDS: DUONEB (A & A) INH SCH ×4 (00:24→11:20)
[2019-12-10 01:23] LABS: UR CREAT RANDOM 25.9 mg/dL (14-26); UR PROT RANDOM < 4.0 mg/dL; UR SODIUM 14 mmoll; UR UREA NITROGEN RANDOM 323 mg/dL
[2019-12-10] MEDS: ZOSYN 3.375 GM in NS 50 ML IV SCH ×2 (03:00→08:53)
[2019-12-10 07:54] LABS: HEMATOCRIT 41.5 % (42.0-52.0); HEMOGLOBIN 13.1 g/dL (14.0-18.0); MCH 30.8 PG (27-31); MCHC 31.6 g/dL (33-37); MCV 97.6 FL (81-99); MPV 10.3 FL (7.4-10.4); RBC 4.25 XMIL (4.7-6.1); RDW 14.1 % (11.5-14.5); WBC 11.16 X1000 (4.8-10.8)
[2019-12-10 08:13] LABS: ALBUMIN 3.2 g/dL (3.5-5.0); CALCIUM 8.5 mg/dL (8.8-10.2); CREATININE 1.5 mg/dL (0.7-1.2); PHOSPHORUS 3.8 mg/dL (2.7-4.5); URIC ACID 3.9 mg/dL (3.4-7.0)
[2019-12-10] MEDS: SOLU-MEDROL IV SCH (08:54)
[2019-12-10] MEDS: ZYLOPRIM PO SCH (08:54)
--- NOTE | 2019-12-10 10:47 | Diag Imaging Result Doc PS360 ---
US RENAL 2 (RETROPER) COMPLETE - 12/10/2019 INDICATION: marbin/arf TECHNIQUE: COMPARISON: None FINDINGS: There is a right renal cyst in the midpole. This measures 19 x 12 mm. Otherwise both kidneys are normal in echotexture. No hydronephrosis or mass. The right kidney measures 12.5 x 6.4 x 6.2 cm. Cortex measures 13 mm. The left kidney measures 13.5 x 5.1 x 5.8 cm. Cortex measures 7 mm. The urinary bladder is normal and filled with clear urine. IMPRESSION: Negative exam. Electronically signed by Marcelo Meek 12/10/2019 10:45 AM
[2019-12-10 12:22] VITALS: BP 124/67
--- NOTE | 2019-12-10 19:33 | PULMONOLOGY PROGRESS NOTE ---
DATE: 12/10/2019 SUBJECTIVE: The patient is walking in the patiño. He has no complaints. He continues with a cough. OBJECTIVE: Vital Signs: Blood pressure is 124/67 with heart rate 80, respirations are 20, temperature is 97.4 degrees with room air saturations 97 to 99% . HEENT: Pupils are equal, round, react to light. EOMs are intact. Sclerae are anicteric. Head is normocephalic, atraumatic. Mucous membranes are moist. Neck: Supple with trachea midline. Cardiovascular: Regular rate and rhythm. S1 and S2 are appreciated. He has no lower extremity edema. Calves are nontender bilateral with peripheral pulses palpable x4 extremities. Pulmonary: Breath sounds are diminished throughout with expiratory wheezes. Chest rises and falls symmetric with respiration. Chest wall is nontender to palpation . Gastrointestinal: Abdomen is soft, nontender, nondistended with bowel sounds in all 4 quadrants. Neurologic: He is alert and oriented x3. LABS: WBC is 11.1 with hemoglobin 13.1, hematocrit 41.5 and platelets of 208,000. Sodium 140, potassium 5, BUN 32, creatinine 1.5 with a glucose of 115. IMPRESSION: This is a 69-year-old gentleman with 1. Acute bronchitis. 2. Acute hypoxemic respiratory failure. 3. Obesity with a body mass index 34.5. 4. History of tobacco use. PLAN: We will continue his current antibiotic regimen. Continue bronchodilators and steroids. We recommend dual coverage antibiotics on discharge covering gram-negative and gram-positive organisms. Recommend a 10 day course of Levaquin and doxycycline as well as a 2 week steroid taper. Dictated by MARCO ANTONIO Taylor for Clark Núñez MD cc: MARCO ANTONIO Taylor MD
--- NOTE | 2019-12-10 22:18 | DISCHARGE SUMMARY ---
ADMISSION DATE: 12/08/2019 DISCHARGE DATE: 12/10/2019 DISPOSITION: Home. FOLLOW-UP: 1. Dr. Gabe Larkin. 2. Dr. Núñez. 3. Dr. Boone. CONSULTATION DURING THIS ADMISSION: Pulmonary Medicine was consulted. Patient was seen by Dr. Núñez. INVASIVE PROCEDURES DONE DURING THIS ADMISSION: None. IMAGING STUDIES: Chest x-ray was negative for any pneumonia. CT scan of the chest shows COPD with chronic bronchitis. A repeat chest x-ray was negative. Sinus imaging showed no evidence of acute disease. Renal ultrasound was unremarkable. ADMISSION DIAGNOSIS: 1. Acute hypoxemic respiratory failure. 2. Possible COPD in exacerbation. 3. History of tobacco use. DIAGNOSIS AT THE TIME OF DISCHARGE: 1. Acute hypoxemic respiratory failure, improved. 2. Suspected COPD in exacerbation on presentation. 3. History of tobacco use and abuse. The patient has stopped using tobacco for the past 20 years. 4. Chronic kidney disease stage 3A to B. 5. History of gout. 6. Recently treated for influenza B. 7. Obesity with BMI of 34.5. DISCHARGE MEDICATIONS: 1. Allopurinol 300 mg p.o. daily. 2. Prednisone 40 mg p.o. daily to be titrated. 3. Doxycycline 100 mg b.i.d. 4. Albuterol inhaler. 5. Levaquin 500 p.o. daily. PRESENTING COMPLAINT: Shortness of breath. HISTORY OF PRESENTING COMPLAINT: Mr. Rodas is a 69-year-old gentleman who has a remote history of tobacco use, presented to the emergency room because of shortness of breath. He was found to be wheezing and extremely hypoxemic with O2 saturation of about 94%. He was admitted to the medical floor for further medical care. HOSPITAL COURSE: Mr. Rodas was started on supplemental oxygen. He was wheezing, so he was treated with bronchodilation therapy, steroids, and antibiotics. Pulmonary Medicine was consulted. Patient was seen by Dr. Núñez. The patient imaging studies were all reviewed. During the hospital course, he continues to improve. The wheezing and the bronchospastic symptoms all got resolved. Recommendations were given by Pulmonary Medicine to taper his steroid off and also get him covered for MRSA. On the day of discharge, Mr. Rodas was completely stable. He was saturating 97% on room air. Mr. Rodas was also found to have abnormal renal function with creatinine of 1.4, went up to 1.7, is down to 1.5 today. He is making adequate urine. His renal ultrasound was for most part unremarkable. We think this is a chronic renal failure, which he would need to follow up with a program research specialist. We have recommended that he follows up with Dr. Boone. This morning Mr. Rodas refers to be doing a lot better. At the time of the encounter, the was at the bedside. His vitals are stable with a blood pressure 124/67, pulse 84, respirations 20, temperature 97.4 degrees. He is saturating 97%. We think he is stable to be discharged. All the discharge instructions have been discussed with him and the and they both voiced understanding. TIME SPENT: The time spent for discharge is 35 minutes. cc: Terrence Mclean MD
== END 2019-12-10 14:00 | disposition home or self-care (01) | DRG 190 ==
LOC: ED 01:37 → EDIPHOLD 01:37 → SUATTDRO 07:23 → 3N 12:37
PROVIDERS: ATTEND Internal Medicine

== ENCOUNTER 2020-01-04 23:25 | Inpatient (IN) ==
[2020-01-04] MEDS ORDERED: DUONEB (A & A) INH ONE (23:44)
[2020-01-05 00:32] LABS: BASO# 0.05 X1000 (0.0-0.2); BASO% 0.5 % (0.0-0.8); EOS# 0.69 X1000 (0.0-0.7); EOS% 6.9 % (0.0-10.0); HEMATOCRIT 46.2 % (42.0-52.0); HEMOGLOBIN 15.1 g/dL (14.0-18.0); IMM GRAN# 0.04 X1000 (0.0-0.04); IMM GRAN% 0.4 % (0.0-0.5); LYMPH# 2.02 X1000 (1.2-3.4); LYMPH% 20.2 % (20.5-51.1); MCH 31.1 PG (27-31); MCHC 32.7 g/dL (33-37); MCV 95.1 FL (81-99); MONO# 0.96 X1000 (0.11-0.59); MONO% 9.6 % (1.7-9.3); MPV 9.8 FL (7.4-10.4); NEUT# 6.24 X1000 (1.4-6.5); NEUT% 62.4 % (42.2-75.2); PLT 314 X1000 (130-400); RBC 4.86 XMIL (4.7-6.1); RDW 14.2 % (11.5-14.5)
[2020-01-05] MEDS ORDERED: SOLU-MEDROL IV ONE (00:47)
[2020-01-05 00:49] LABS: ALB/GLOB RATIO 1.5; ALBUMIN 3.9 g/dL (3.5-5.0); CREATININE 1.5 mg/dL (0.7-1.2); POTASSIUM 4.4 mmol/L (3.5-5.1); TOTAL BILIRUBIN 0.31 mg/dL (0.20-1.00); TOTAL PROTEIN 6.5 g/dL (6.3-8.3)
--- NOTE | 2020-01-05 02:03 | PROVIDER DOCUMENTATION ---
This chart was entered by Sweta White Scribe, acting as scribe for Yadira Cheek MD. HPI-Respiratory General - General Stated Complaint: cough, sob Time Seen by Provider: 01/04/20 23:31 Source: patient Allergies/Adverse Reactions: Patient Allergies Allergy/AdvReac Type Severity Reaction Status Date / Time iodine Allergy Severe SWELLING Verified 11/18/19 15:02 shellfish derived Allergy Severe Unknown Verified 12/07/19 08:53 Home Medications: Home Medication List Medication Instructions Recorded Confirmed Last Taken Type Allopurinol [Zyloprim] 300 mg PO DAILY 12/07/19 12/07/19 Unknown History Codeine Phosphate/Guaifenesin 10 ml PO Q6H PRN PRN 12/07/19 12/07/19 Unknown History [Virtussin AC 10-100 mg/5 ml Lq] Albuterol Sulfate Inhaler 2 puff INH Q6H PRN PRN #1 inhaler 12/10/19 Unknown Rx [Ventolin Hfa] Doxycycline 100 mg PO BID #20 tab 12/10/19 Unknown Rx Levofloxacin [Levaquin] 500 mg PO DAILY #10 12/10/19 Unknown Rx Prednisone 40 mg PO DAILY #20 tab 12/10/19 Unknown Rx - History of Present Illness-Resp Nature of Presenting Problem: pt is a 69 yr old male presenting via EMS with 1 day complaint of shortness of breath, cough and wheezing. pt reports he called [facility] this AM and was prescribed inhalers, inhalers are not helping symptoms, pt reports dyspnea worse when he lies down. pt denies any pain or fever Quality of Pain: reports: none Severity in ED: reports: moderate Onset/Duration: reports: this morning Timing: reports: still present Exposure: reports: unknown cause Cough Quality/Degree: reports: moderate, dry cough Episode Frequency: no prior episodes Current Respiratory Medication Therapy: Initiated albuterol/atrovent inhale (no relief) Modifying Factors: improves with: albuterol inhaler (no relief) Associated Symptoms: reports: cough, shortness of breath, wheezing. denies: chest pain/soreness, fever/chills, flu-like symptoms Similar Symptoms Previously?: No Recently seen or treated by another doctor?: Yes (seen by [facility] this AM) Review of Systems - Adult - REVIEW OF SYSTEMS - ADULT Constitutional: denies: chills, fever Eyes: reports: no symptoms reported Ears, Nose, Mouth & Throat: denies: ear pain, sinus problem, throat pain Cardiovascular: reports: orthopnea. denies: chest pain, palpitations, syncope Respiratory: reports: cough, dyspnea on exertion, shortness of breath, wheezing Gastrointestinal: reports: no symptoms reported Genitourinary: reports: no symptoms reported Musculoskeletal: denies: muscle aches, muscle weakness Integumentary: reports: no symptoms reported Neurological: denies: dizziness/vertigo, headache/migraines All Other Systems: Reviewed and Negative Past History - Adult - PAST MEDICAL HISTORY-ADULT Review of Records: reports: Old Records Reviewed, Nursing Assessment Review, Medications Reviewed, Social history reviewed & non-contributory. Major Childhood Illnesses: reports: denies history Cardiovascular: reports: denies history Respiratory: reports: pneumonia Gastrointestinal: reports: denies history Obstetrical/Gynecological: reports: denies history Genitourinary: reports: denies history Musculoskeletal: reports: other (gout) Neurological: reports: denies history Endocrine/Immune: reports: denies history Other Conditions: reports: denies history - IMMUNIZATION STATUS Childhood Immunizations: See Nurse Assessment Flu Vaccine: See Nurse Assessment - FAMILY HISTORY Family History: reviewed, not pertinent - SOCIAL HISTORY Smoking: quit greater than 1 year Living Situation: family Physical Exam-General - PHYSICAL EXAM-ADULT Initial Vital Signs Reviewed: Yes - CONSTITUTIONAL General Appearance: alert, no apparent distress - EYES Eyes: PERRL/EOMI - HEAD, EARS, NOSE, MOUTH & THROAT HENMT: normocephalic/atraumatic, moist mucous membranes - NECK Neck: non-tender, full range of motion, supple, normal inspection - RESPIRATORY Respiratory: chest non-tender, no pleuratic chest pain, no accessory muscle use, rhonchi (diffuse), wheezing (diffuse) - CARDIOVASCULAR Cardiovascular: normal peripheral pulses, regular rate, rhythm - GASTROINTESTINAL (ABDOMEN) Abdominal Exam: normal bowel sounds, non tender, soft - LYMPHATIC Lymphatic: no adenopathy - MUSCULOSKELETAL Back Exam: normal inspection Extremity: normal range of motion, non-tender, normal inspection - SKIN Integumentary: normal color, normal turgor, warm/dry - NEUROLOGIC Neurologic: grossly normal, no motor/sensory deficits - PSYCHIATRIC Psych/Mental Status: normal mood/affect - HEART Score HEART Score: History: Slightly Suspicious HEART Score: ECG: Non-Specific Repolarization Disturbance/LBBB/PM HEART Score: Age: > or = 65 Years HEART Score: Risk Factors for Atherosclerotic Disease: 1 or 2 Risk Factors HEART Score: Troponin: < or = Normal Limit Total HEART Score:: 4 Progress - PLAN OF CARE/RESULTS Progress/Plan/Lab Results: Vital Signs - 8 hr 01/04/20 23:44 01/05/20 00:20 Temperature 97.9 F Pulse Rate 125 H 120 H Respiratory Rate 20 20 Blood Pressure 135/88 O2 Sat by Pulse Oximetry 96 96 01/05/20 00:13 Influenza Screen - Final Nasopharyngeal Laboratory Results - last 24 hr 01/05/20 01/05/20 01/05/20 00:13 00:13 00:13 WBC RBC Hgb Hct MCV MCH MCHC RDW Std Deviation Plt Count MPV Immature Gran % (Auto) Neut % (Auto) Lymph % (Auto) [place] % (Auto) Eos % (Auto) Baso % (Auto) Immature Gran # (Auto) Neut # (Auto) Lymph # (Auto) [place] # (Auto) Eos # (Auto) Baso # (Auto) D-Dimer, Quantitative Sodium 136 Potassium 4.4 Chloride 99 Carbon Dioxide 25 Anion Gap 12 BUN 22 Creatinine 1.5 H Estimated GFR/1.73 m2 46 BUN/Creatinine Ratio 15 Glucose 125 H Calculated Osmolality 277 Calcium 9.0 Total Bilirubin 0.31 AST 15 ALT 12 Alkaline Phosphatase 97 Creatine Kinase 119 Troponin T High Sens Bfw-G-Vrbmgedqadu Pept 39 Total Protein 6.5 Albumin 3.9 Globulin 2.6 Albumin/Globulin Ratio 1.5 Plasma Lactate 1.2 01/05/20 01/05/20 01/05/20 00:13 00:13 00:13 WBC 10.00 RBC 4.86 Hgb 15.1 Hct 46.2 MCV 95.1 MCH 31.1 H MCHC 32.7 L RDW Std Deviation 14.2 Plt Count 314 MPV 9.8 Immature Gran % (Auto) 0.4 Neut % (Auto) 62.4 Lymph % (Auto) 20.2 L [place] % (Auto) 9.6 H Eos % (Auto) 6.9 Baso % (Auto) 0.5 Immature Gran # (Auto) 0.04 Neut # (Auto) 6.24 Lymph # (Auto) 2.02 [place] # (Auto) 0.96 H Eos # (Auto) 0.69 Baso # (Auto) 0.05 D-Dimer, Quantitative 1.86 H Sodium Potassium Chloride Carbon Dioxide Anion Gap BUN Creatinine Estimated GFR/1.73 m2 BUN/Creatinine Ratio Glucose Calculated Osmolality Calcium Total Bilirubin AST ALT Alkaline Phosphatase Creatine Kinase Troponin T High Sens 23 H Qlb-C-Djahmpukjpd Pept Total Protein Albumin Globulin Albumin/Globulin Ratio Plasma Lactate Orders Category Date Time Status NEWS Score 2-4:Order NEWS Lactate Series NOW Care 01/04/20 23:48 Active CHEST-1 VIEW [RAD] Stat Exams 01/04/20 23:[address] THORAX W/O CONTRAST [CT] Stat Exams 01/05/20 01:15 Taken CBC WITH ELECTRONIC DIFF [HEME] Stat Lab 01/05/20 00:13 Completed CK PROFILE [SP CHEM] Stat Lab 01/05/20 00:13 Completed COMPREHENSIVE METABOLIC PANEL [CHEM] Stat Lab 01/05/20 00:13 Completed D-DIMER [COAG] Stat Lab 01/05/20 00:13 Completed INFLUENZA SCREEN A/B Stat Lab 01/05/20 00:13 Completed LACTATE, PLASMA [CHEM] Lab 01/05/20 02:54 Uncollected LACTATE, PLASMA [CHEM] Lab 01/05/20 05:54 Uncollected LACTATE, PLASMA [CHEM] Q3H Lab 01/05/20 00:13 Completed PRO B-NATRIURETIC PEPTIDE Stat Lab 01/05/20 00:13 Completed TROPONIN T HIGH SENSITIVITY Stat Lab 01/05/20 00:13 Completed Albuterol 2.5MG/Ipratrop 0.5MG [Duoneb (A & A)] Med 01/04/20 23:44 Discontinued 9 ml INH NOW ONE Methylprednisolone Sod Succ [Solu-Medrol] Med 01/05/20 00:47 Discontinued 125 mg IV NOW ONE Aerosol Treatments Routine Oth 01/04/20 23:45 Completed Aerosol Treatments Stat Oth 01/04/20 23:45 Completed Result Diagrams: 01/05/20 00:13 01/05/20 00:13 - REASSESSMENT Reassessment #1 Time Reassessed: 01:00 Status: improving (better than before but continues to have diffulty breathing) - CONSULTS/PCP/HOSPITALIST Notification #1 *Consult/PCP/Hospitalist*: d/w Dr Rodas Time Discussed: 02:15 Consult Disposition: Admit Departure - Departure Date of Disposition Decision: 01/05/20 Time of Disposition Decision: 02:02 DIAGNOSIS: Bronchitis, Dyspnea Disposition: ADMITTED INPATIENT 09 Certified Medical Emergency: Emergent Condition: Stable Referrals and Follow-Ups: Gabe Larkin MD [Primary Care Provider] - - Critical Care Note This patient required my direct & personal management of CC.: No Attestation - Physician/ TERRELL Attestation Patient care was provided by Advanced Practice Provider:: No The physician spent face to face time with patient:: Yes Advanced Practice Provider documentation review:: Supervising physician onsite and consulted in the evaluation and care of this patient. The physician did have a face to face encounter with the patient. This chart was documented by the indicated scribe, (Sweta White Scribe) and accurately reflects the services I performed and decisions made by me, Yadira Cheek MD, as attested by the provider's signature.
[2020-01-05] MEDS ORDERED: ZITHROMAX 500 MG/NS 500 MG/250 ML IVPB IV ONE (02:27)
[2020-01-05] MEDS ORDERED: ROCEPHIN 1 GM in NS 50 ML IV ONE (02:27)
--- NOTE | 2020-01-05 04:04 | HISTORY AND PHYSICAL ---
PRIMARY CARE PHYSICIAN: Dr. Larkin. CHIEF COMPLAINT: Shortness of breath. HISTORY OF PRESENTING ILLNESS: A 69-year-old male with a history of COPD, chronic kidney disease, gout, who had been discharged from hospital for COPD exacerbation in late November. Presents again with similar complaints of shortness of breath, difficulty breathing. He was seen in the ED. He was given albuterol nebulizers. He had some improvement. However, due to his presenting symptoms, it was thought that we will place him for observation for further evaluation and management. At the time of my examination, patient denied any headache, fever, chills, chest pain, hemoptysis, melena, weight changes, but complained of shortness of breath. PAST MEDICAL HISTORY: Includes gout, chronic kidney disease, COPD. PAST SURGICAL HISTORY: Left knee arthroscopy. ALLERGIES: Iodine and shellfish. CURRENT MEDICATIONS: Include albuterol inhaler 2 puffs q.6 hours, allopurinol 300 mg p.o. daily, prednisone 40 mg p.o. daily. SOCIAL HISTORY: He is a former smoker. Denies any history of alcohol or illicit drug use. FAMILY HISTORY: Positive coronary disease, mother. REVIEW OF SYSTEMS: Fourteen point review of systems is as in HPI. Other systems negative. PHYSICAL EXAMINATION: GENERAL: Cooperative, friendly male. He is resting more comfortably now. VITAL SIGNS: Temperature 97.9 degrees, pulse 125, respirations 20, blood pressure 135/88. HEENT: Atraumatic, normocephalic. Extraocular movements intact. PERRLA. NECK: No masses. CHEST: Scattered wheezes. CARDIOVASCULAR: Regular rate and rhythm. ABDOMEN: Soft, positive bowel sounds. EXTREMITIES: No edema. NEUROLOGIC: He is awake, alert, oriented x3. GENITOURINARY: No bladder distention. SKIN: Warm. LABORATORIES AND STUDIES: Sodium 136, potassium 4.4, chloride 99, CO2 is 25, BUN is 22, creatinine is 1.5. Glucose 125. WBC is 10.0, hemoglobin 15.1, hematocrit 46.2, platelets 314,000. ASSESSMENT: A 69-year-old male with a history of chronic obstructive pulmonary disease, chronic kidney disease and gout, who had presented to emergency department with several days history of having worsening shortness of breath. He was seen in the ED. He was found to be in exacerbation of his chronic obstructive pulmonary disease. Subsequently, we will place him for observation for further evaluation and management. 1. Chronic obstructive pulmonary disease exacerbation with acute bronchitis. 2. Gout. 3. Chronic kidney disease. PLAN: 1. We will admit patient to medical floor with telemetry. 2. We will continue with duo nebs, IV Solu-Medrol, and mucolytic agent. 3. We will restart other home medications. 4. Monitor his renal function. 5. Put patient on DVT prophylaxis with SCD. 6. We will continue to follow, reassess and make further recommendation based on patient's clinical course. cc: Adair Rodas MD
[2020-01-05] MEDS ORDERED: TYLENOL PO PRN (04:16)
[2020-01-05] MEDS ORDERED: ZOFRAN IV PRN (04:16)
[2020-01-05] MEDS: LEVAQUIN 500 MG/D5W 500 MG/100 ML IVPB IV SCH (05:01)
[2020-01-05] MEDS: SOLU-MEDROL IV SCH ×3 (05:01→21:09)
--- NOTE | 2020-01-05 07:05 | Diag Imaging Result Doc PS360 ---
EXAM: CHEST-1 VIEW 01/04/2020 HISTORY: SOB TECHNIQUE: AP portable at 2356 COMMENT: There is no evidence of acute cardiac or pulmonary disease and compared to 2019 there has been no significant change. IMPRESSION: Stable chest. Electronically signed by Johnnie Little 01/05/2020 7:02 AM
--- NOTE | 2020-01-05 07:05 | Diag Imaging Result Doc PS360 ---
CT THORAX W/O CONTRAST - 01/05/2020 INDICATION: pneumonia COMPARISON: 12/07/2019 FINDINGS: There is no significant change in the chronic bronchitis. There is some mild mucous plugging of small airways in the lung bases similar to prior. No focal infiltrates. No adenopathy. Heart size is normal. Upper abdomen is normal. Bones are intact. IMPRESSION: Chronic bronchitis with mild mucous plugging in the lung bases. This exam was performed using automated exposure control, adjustment of mA or kV according to patient size, and/or use of iterative reconstruction technique Electronically signed by Marcelo Meek 01/05/2020 7:02 AM
[2020-01-05] MEDS: VENTOLIN HFA INH SCH ×6 (07:37→23:31)
[2020-01-05] MEDS: MUCINEX PO SCH ×2 (08:20→21:09)
[2020-01-05 08:54] LABS: INR 1.05; PROTIME 13.8 Seconds (11.0-16.0)
[2020-01-05 08:55] LABS: PTT 31.6 Seconds (22.3-41.8)
--- NOTE | 2020-01-05 10:09 | PROGRESS NOTE ---
DATE: 01/05/2020 Ms. Rodas's doctor is Dr. Gabe Larkin. Came in with shortness of breath. Said he was wheezing quite a bit, a couple days, and had a little bit of cough and some subjective fever. A 69-year-old with a history of COPD, chronic kidney disease, and a history of gout. Discharged from the hospital with COPD exacerbation in November. Presented again with complaints of shortness of breath, difficulty breathing. Seen in the emergency room. Given acute nebulizers. Did have some improvement. However, due to his presenting symptoms, decided to place him in for observation, for further evaluation. At the time of exam, patient denied headache, fever, chills, chest pain, hemoptysis, melena, weight changes. Admitted with: 1. Chronic obstructive pulmonary disease exacerbation and symptoms of acute bronchial irritation, bronchitis. 2. Gout. 3. History of chronic kidney disease. He was sitting up in a chair, breathing comfortably when I saw him. OBJECTIVE: Remains afebrile, temperature 98.1 degrees, pulse 100, respirations 19, blood pressure 156/77. Pupils are equal and round. Lungs are clear in all lung ureña. Cardiovascular Examination: Regular rhythm and rate without murmur or S3. Abdomen is soft. Skin is warm and dry. No pedal edema. LABORATORY DATA: Reviewed. White count was 10,000, hematocrit was 46, platelet count 314,000. Sodium 136, potassium 4.4, chloride 44, BUN 22, creatinine 1.5, albumin was 3.9. Chest x-ray, stable chest. There is no evidence of acute cardiac or pulmonary disease. No sign of infiltrate. A CT of his chest, chronic bronchitis, mild mucus plugging in the lung bases. REVIEW OF HIS ORDERS: He is getting albuterol inhalation. He is on guaifenesin 1200 mg ER twice a day. He is on methylprednisone 60 mg IV q.8 and ceftriaxone 1 g, got 1 dose. He is on azithromycin 500 mg. he got 1 dose of that as well. This seems to be improving. Review of his lab again, creatinine 1.5, aware. cc: Prasad Colbert MD
[2020-01-05 17:49] LABS: URINE SOURCE CLEAN CATCH
[2020-01-05 17:52] LABS: BILIRUBIN URINE NEGATIVE (NEGATIVE); BLOOD URINE NEGATIVE (NEGATIVE); CLARITY CLEAR (CLEAR); COLOR YELLOW; GLUCOSE URINE NEGATIVE (NEGATIVE); KETONE URINE NEGATIVE (NEGATIVE); LEUKOCYTES URINE NEGATIVE (NEGATIVE); NITRITE URINE NEGATIVE (NEGATIVE); PROTEIN URINE NEGATIVE (NEGATIVE); SP GRAVITY URINE 1.025; UROBILINOGEN URINE 0.2 EU/dL (0.2-1.0)
[2020-01-05 17:56] LABS: URINE BACTERIA NEGATIVE /HFP; URINE EPITHELIAL CELLS <10 /HPF (<10); URINE RBC <10 /HPF (<10); URINE WBC <10 /HPF (<10)
[2020-01-06] MEDS: VENTOLIN HFA INH SCH ×6 (03:30→23:30)
[2020-01-06] MEDS: LEVAQUIN 500 MG/D5W 500 MG/100 ML IVPB IV SCH (05:32)
[2020-01-06 06:08] LABS: BASO# 0.06 X1000 (0.0-0.2); BASO% 0.4 % (0.0-0.8); EOS# 0.04 X1000 (0.0-0.7); EOS% 0.3 % (0.0-10.0); HEMATOCRIT 45.7 % (42.0-52.0); IMM GRAN# 0.03 X1000 (0.0-0.04); IMM GRAN% 0.2 % (0.0-0.5); LYMPH# 0.87 X1000 (1.2-3.4); LYMPH% 5.8 % (20.5-51.1); MCH 32.1 PG (27-31); MCHC 32.8 g/dL (33-37); MCV 97.9 FL (81-99); MONO% 4.7 % (1.7-9.3); MPV 9.8 FL (7.4-10.4); NEUT# 13.31 X1000 (1.4-6.5); NEUT% 88.6 % (42.2-75.2); PLT 319 X1000 (130-400); RBC 4.67 XMIL (4.7-6.1); RDW 14.6 % (11.5-14.5); WBC 15.01 X1000 (4.8-10.8)
[2020-01-06] MEDS: MUCINEX PO SCH ×2 (10:53→21:28)
[2020-01-06 11:05] LABS: CALCIUM 9.8 mg/dL (8.8-10.2); CREATININE 1.6 mg/dL (0.7-1.2); POTASSIUM 4.8 mmol/L (3.5-5.1)
--- NOTE | 2020-01-06 12:56 | PROGRESS NOTE ---
DATE: 01/06/2020 SUBJECTIVE: Mr. Rodas is breathing better. Still has some wheezing and a dry cough. We sent off another test for the Coronavirus, but I do not think clinically he shows signs of infection. His influenza was negative. OBJECTIVE: Vital Signs: Temperature 97.5 degrees, pulse 90, respirations 16, blood pressure 140/69. HEENT: Pupils are equal and round. Lungs: Clear in all lung ureña. Cardiovascular: Regular rhythm and rate without murmur or S3. Abdomen: Soft. Skin: Warm and dry. Urine Output: 2000 mL. DIAGNOSTIC DATA: CT of his chest was done on the that showed chronic bronchitis, mild mucus plugging in the lung bases. ASSESSMENT: 1. Underlying chronic obstructive pulmonary disease. He is on home oxygen. He had some bronchial irritation, and I suspect a lot of postnasal drainage from the pollen. I do not see any sign of active infection. 2. History of gout. 3. History of chronic kidney disease. Kidney function is stable. PLAN: So, we will continue for now his Levaquin 500 mg IV every 24 hours, and he is getting guaifenesin and albuterol inhalation treatments, and I will put him on a steroid inhaler as well, and hopefully he can be discharged tomorrow. cc: Prasad Colbert MD
[2020-01-06] MEDS: SYMBICORT 80/4.5 MICROGM INHALER INH SCH ×2 (15:10→20:00)
[2020-01-07] MEDS: VENTOLIN HFA INH SCH (03:41)
[2020-01-07] MEDS: LEVAQUIN 500 MG/D5W 500 MG/100 ML IVPB IV SCH (04:32)
[2020-01-07 08:00] VITALS: BP 109/66
[2020-01-07] MEDS: MUCINEX PO SCH (08:47)
--- NOTE | 2020-01-07 11:03 | DISCHARGE SUMMARY ---
ADMISSION DATE: 01/05/2020 DISCHARGE DATE: 01/07/2020 PRIMARY CARE: Dr. Larkin HISTORY: A 69-year-old white male came in with shortness of breath. History of COPD, chronic kidney disease, and gout. Discharged from the hospital with COPD exacerbation in November. The patient again similar complaining of shortness of breath, feeling difficulty breathing. He was seen in the emergency room and had some albuterol nebulizers. He did have some improvement, but because his wheezing and during the time concerned I am concerned about coronavirus he came in. He did have some bronchospasm and wheezing. I suspect he is mainly postnasal drip and drainage from pollen and bronchial irritation. He was tested for COVID virus and was negative with oral nasal swab and his breathing had improved with the addition of a steroid inhaler and some Solu- Medrol and so felt he could go home on 01/07/2020. We will let him continue his steroid inhalers and I think he has a Ventolin inhaler at home we do. He will not be on any antibiotics and I will give him a Medrol Dos-awilda to help with his bronchospasm. He will be on allopurinol 300 mg a day, take his Ventolin inhaler. I will give him a prescription for his Symbicort, but he can use his current Symbicort until it runs out and then he has cough medicine at home and I will put him on some Zyrtec for antihistamine. He will follow up with his primary care. cc: Prasad Colbert MD
== END 2020-01-07 11:55 | disposition home or self-care (01) | DRG 192 ==
LOC: 4N 23:25 → ED 23:25 → SUATTDRO 01-05 03:43 → 4N 01-06 22:45
PROVIDERS: ATTEND Emergency Medicine

== ENCOUNTER 2020-02-04 22:47 | Inpatient (IN) ==
[2020-02-04] MEDS ORDERED: SOLU-MEDROL IV ONE (22:53)
[2020-02-04] MEDS ORDERED: XOPENEX NEB INH ONE (22:53)
[2020-02-04] MEDS ORDERED: NS NEB INH SCH (23:00)
--- NOTE | 2020-02-04 23:01 | PROVIDER DOCUMENTATION ---
HPI-Respiratory General - General Chief Complaint: Shortness of Breath Stated Complaint: resp distress Time Seen by Provider: 02/04/20 22:56 Source: patient, EMS Allergies/Adverse Reactions: Patient Allergies Allergy/AdvReac Type Severity Reaction Status Date / Time iodine Allergy Severe SWELLING Verified 02/04/20 23:13 shellfish derived Allergy Severe Unknown Verified 02/04/20 23:13 Home Medications: Home Medication List Medication Instructions Recorded Confirmed Last Taken Type Allopurinol [Zyloprim] 300 mg PO DAILY 12/07/19 02/04/20 Unknown History Codeine Phosphate/Guaifenesin 10 ml PO Q6H PRN PRN 12/07/19 02/04/20 Unknown History [Virtussin AC 10-100 mg/5 ml Lq] Albuterol Sulfate Inhaler 2 puff INH Q6H PRN PRN #1 inhaler 12/10/19 02/04/20 Unknown Rx [Ventolin Hfa] Acetaminophen [Tylenol] 650 mg PO Q6H PRN PRN tab 01/07/20 02/04/20 Unknown Rx Budesonide/Formoterol Inhaler 2 puff INH RTBID 30 Days #1 inhaler 01/07/20 Unknown Rx [Symbicort 80/4.5 Microgm Inhaler] Cetirizine HCl [Zyrtec] 10 mg PO DAILY 30 Days #30 tab 01/07/20 02/04/20 Unknown Rx Guaifenesin E.r. [Mucinex] 1,200 mg PO Q12HR 30 Days #60 tab 01/07/20 02/04/20 Unknown Rx - History of Present Illness-Resp Nature of Presenting Problem: [id number] presents to the ER via EMS with increasing SOB and WOB. EMS reports O2 sats were 70-80% on arrival, with O2 patient's his oxygen sats began to rebound but his WOB began to deteriorate. EMS then placed the patient on CPAP. At that point, EMS reports patient became less anxious, WOB decreased and O2 sats were maintained at 98%. reported that patient has been social distancing and taking precautions. She reports he did see his PCP today and was given a steroid injection for COPD exacerbation. Onset/Duration: reports: 1 week ago Timing: reports: getting worse Context: denies: recent foreign travel Associated Symptoms: reports: short of breath, wheezing. denies: fever/chills Similar Symptoms Previously?: Yes Recently seen or treated by another doctor?: Yes Review of Systems - Adult - REVIEW OF SYSTEMS - ADULT Constitutional: reports: see HPI. denies: chills, fever Eyes: reports: other (watery eyes) Ears, Nose, Mouth & Throat: reports: other (runny nose) Cardiovascular: reports: no symptoms reported. denies: chest pain, orthopnea Respiratory: reports: see HPI, cough, dyspnea on exertion, wheezing Gastrointestinal: reports: no symptoms reported Genitourinary: reports: no symptoms reported Musculoskeletal: reports: no symptoms reported Integumentary: reports: no symptoms reported Neurological: reports: no symptoms reported Psychiatric: reports: no symptoms reported Endocrine: reports: no symptoms reported Hematologic/Lymphatic: reports: no symptoms reported Allergic/Immunologic: reports: no symptoms reported All Other Systems: Reviewed and Negative Past History - Adult - PAST MEDICAL HISTORY-ADULT Review of Records: reports: Old Records Reviewed, Nursing Assessment Review, Medications Reviewed, Social history reviewed & non-contributory. Major Childhood Illnesses: reports: denies history Cardiovascular: reports: denies history Respiratory: reports: asthma, COPD, pneumonia Gastrointestinal: reports: denies history Obstetrical/Gynecological: reports: denies history Genitourinary: reports: denies history Musculoskeletal: reports: other (gout) Neurological: reports: denies history Endocrine/Immune: reports: denies history Other Conditions: reports: denies history - IMMUNIZATION STATUS Childhood Immunizations: See Nurse Assessment Flu Vaccine: See Nurse Assessment - FAMILY HISTORY Family History: reviewed, not pertinent - SOCIAL HISTORY Living Situation: family Physical Exam-General - PHYSICAL EXAM-ADULT Initial Vital Signs Reviewed: Yes - CONSTITUTIONAL General Appearance: alert, moderate distress - EYES Eyes: PERRL/EOMI, pink conjunctivae - HEAD, EARS, NOSE, MOUTH & THROAT HENMT: moist mucous membranes - NECK Neck: supple - RESPIRATORY Respiratory: respiratory distress (moderate), decreased breath sounds, rhonchi, wheezing (scattered) - CARDIOVASCULAR Cardiovascular: tachycardia. negative: no edema (+1 pitting to BLE), no gallop, no JVD, no murmur - GASTROINTESTINAL (ABDOMEN) Abdominal Exam: negative: distended (large) - MUSCULOSKELETAL Peripheral Pulses: dorsalis-pedis (R): 2+, dorsalis-pedis (L): 2+ - SKIN Integumentary: normal color, warm/dry - PSYCHIATRIC Psych/Mental Status: anxious - HEART Score HEART Score: History: Slightly Suspicious HEART Score: ECG: Normal HEART Score: Age: > or = 65 Years HEART Score: Risk Factors for Atherosclerotic Disease: > or = 3 Risk Factors or History of Atherosclerotic Disease HEART Score: Troponin: < or = Normal Limit Total HEART Score:: 4 Progress - PLAN OF CARE/RESULTS Progress/Plan/Lab Results: Vital Signs - 8 hr 02/04/20 23:05 Temperature 99.6 F Pulse Rate 149 H Respiratory Rate 32 H Blood Pressure 210/142 O2 Sat by Pulse Oximetry 98 Laboratory Results - last 24 hr 02/04/20 02/04/20 02/04/20 22:58 22:58 22:58 WBC RBC Hgb Hct MCV MCH MCHC RDW Std Deviation Plt Count MPV Immature Gran % (Auto) Neut % (Auto) Lymph % (Auto) [place] % (Auto) Eos % (Auto) Baso % (Auto) Immature Gran # (Auto) Neut # (Auto) Lymph # (Auto) [place] # (Auto) Eos # (Auto) Baso # (Auto) D-Dimer, Quantitative Sodium 139 Potassium 5.0 Chloride 100 Carbon Dioxide 27 Anion Gap 12 BUN 16 Creatinine 1.3 H Estimated GFR/1.73 m2 55 BUN/Creatinine Ratio 12 Glucose 126 H Calculated Osmolality 280 Calcium 9.3 Total Bilirubin 0.34 AST 16 ALT 14 Alkaline Phosphatase 94 Creatine Kinase 117 Troponin T High Sens Tfv-L-Iqbaufhkrhs Pept Total Protein 7.0 Albumin 4.1 Globulin 2.9 Albumin/Globulin Ratio 1.4 Plasma Lactate 1.0 02/04/20 02/04/20 02/04/20 22:58 22:58 22:58 WBC 9.59 RBC 5.12 Hgb 15.8 Hct 49.2 MCV 96.1 MCH 30.9 MCHC 32.1 L RDW Std Deviation 14.1 Plt Count 287 MPV 9.8 Immature Gran % (Auto) 0.0 Neut % (Auto) 66.2 Lymph % (Auto) 17.0 L [place] % (Auto) 8.1 Eos % (Auto) 8.1 Baso % (Auto) 0.6 Immature Gran # (Auto) 0.00 Neut # (Auto) 6.34 Lymph # (Auto) 1.63 [place] # (Auto) 0.78 H Eos # (Auto) 0.78 H Baso # (Auto) 0.06 D-Dimer, Quantitative Sodium Potassium Chloride Carbon Dioxide Anion Gap BUN Creatinine Estimated GFR/1.73 m2 BUN/Creatinine Ratio Glucose Calculated Osmolality Calcium Total Bilirubin AST ALT Alkaline Phosphatase Creatine Kinase Troponin T High Sens 20 H [id number]-Exvjnilsaox Pept 66 Total Protein Albumin Globulin Albumin/Globulin Ratio Plasma Lactate 02/04/20 22:58 WBC RBC Hgb Hct MCV MCH MCHC RDW Std Deviation Plt Count MPV Immature Gran % (Auto) Neut % (Auto) Lymph % (Auto) [place] % (Auto) Eos % (Auto) Baso % (Auto) Immature Gran # (Auto) Neut # (Auto) Lymph # (Auto) [place] # (Auto) Eos # (Auto) Baso # (Auto) D-Dimer, Quantitative 1.60 H Sodium Potassium Chloride Carbon Dioxide Anion Gap BUN Creatinine Estimated GFR/1.73 m2 BUN/Creatinine Ratio Glucose Calculated Osmolality Calcium Total Bilirubin AST ALT Alkaline Phosphatase Creatine Kinase Troponin T High Sens [id number]-Zlznjqlfrci Pept Total Protein Albumin Globulin Albumin/Globulin Ratio Plasma Lactate Orders Category Date Time Status NEWS Score >or=5:Order NEWS Bundle S.O. NOW Care 02/04/20 23:11 Active Nursing- Obtain EKG ONCE Care 02/04/20 22:55 Active Saline Loc NOW Care 02/04/20 22:53 Active CHEST-PORTABLE [RAD] Stat Exams 02/04/20 22:54 Taken LUNG SCAN / VQ [NM] Stat Exams 02/05/20 00:33 Ordered ABG [RESP] Routine Lab 02/04/20 22:54 Ordered BLOOD CULTURE [BLDCUL] Stat Lab 02/04/20 22:58 Results CBC WITH DIFF [HEME] Stat Lab 02/04/20 22:58 Completed CK PROFILE [SP CHEM] Stat Lab 02/04/20 22:58 Completed COMPREHENSIVE METABOLIC PANEL [CHEM] Stat Lab 02/04/20 22:58 Completed D-DIMER [COAG] Stat Lab 02/04/20 22:58 Completed LACTATE, PLASMA [CHEM] Stat Lab 02/04/20 22:58 Completed PRO B-NATRIURETIC PEPTIDE Stat Lab 02/04/20 22:58 Completed TROPONIN T HIGH SENSITIVITY Stat Lab 02/04/20 22:58 Completed Levalbuterol Neb [Xopenex Neb] Med 02/04/20 22:53 Discontinued 0.63 mg INH NOW ONE Lorazepam [Ativan] Med 02/04/20 23:24 Discontinued 0.5 mg IV NOW ONE Lorazepam [Ativan] Med 02/05/20 00:01 Discontinued 1 mg IV NOW ONE Methylprednisolone Sod Succ [Solu-Medrol] Med 02/04/20 22:53 Discontinued 125 mg IV NOW ONE Sodium Chloride 0.9% Neb [Ns Neb] Med 02/04/20 23:00 Active 5 ml INH DIRECTED Aerosol Treatments Routine Oth 02/04/20 22:54 Active Aerosol Treatments Stat Oth 02/04/20 22:54 Active Pulse Oximetry Stat Oth 02/04/20 22:53 Active EKG [EKG] Stat Ther 02/04/20 22:55 Ordered EKG [EKG] Stat Ther 02/05/20 00:24 Ordered Result Diagrams: 02/04/20 22:58 02/04/20 22:58 - EKG 1 Time of EKG reading by physician:: 23:00 EKG Read and Signed by:: Dayday Zimmerman EKG Interpretation (*Must complete 3 of following elements*): Abnormal Rate: 150 Rhythm: sinus tach Diana: right QRS: normal [place] Interval: normal ST Wave: normal 2 Time of EKG reading by physician:: 00:28 EKG Read and Signed by:: Dayday Zimmerman EKG Interpretation (*Must complete 3 of following elements*): Abnormal Rate: 143 Rhythm: sinus tach Diana: right QRS: other (Pulmonary disease pattern) [place] Interval: normal - XRAY 1 XRAY Study: Chest Impression: See EMR Report (No acute cardiopulmonary disease is identified. [place]) - CONSULTS/PCP/HOSPITALIST Notification #1 *Consult/PCP/Hospitalist*: Dr Rodas Time Discussed: 00:44 Reason/Comments: COPD exacerbation Consult Disposition: Admit Departure - Departure Date of Disposition Decision: 02/05/20 Time of Disposition Decision: 00:44 DIAGNOSIS: COPD exacerbation, Tachycardia with hypertension Disposition: ADMITTED INPATIENT 09 Certified Medical Emergency: Emergent Condition: Critical Additional Instructions: ED Follow Up Instructions: You have been treated by a care provider in the Emergency Department. These instructions are being provided to you so you can have an understanding of how to care for yourself upon discharge. Upon discharge from the Emergency Department, you are responsible for making arrangements for follow-up care by a physician of your choice. Take all prescribed medications as directed. Return to the Emergency Department immediately for any new or worsening symptoms. You may call the Physician Referral phone number at [phone] to obtain a list of Physicians who are taking new patients. Referrals and Follow-Ups: Gabe Larkin MD [Primary Care Provider] - - Critical Care Note This patient required my direct & personal management of CC.: Yes Total Time (mins): 31 Critical Care Statement: This patient required my direct personal management to treat or rule out processes, the absence of which, could potentiallly result in sudden, clinically significant life or limb threatening deterioration. Attestation - Physician/ TERRELL Attestation Patient care was provided by Advanced Practice Provider:: Yes Advanced Practice Provider:: Kartik Danielson Advanced Practice Provider documentation review:: The Mid-level provider docum entation, treatment plan and medical decision making was reviewed by the physician who agrees with all treatment and medical decision making by the P. The physician spent face to face time with patient:: Yes Advanced Practice Provider documentation review:: Supervising physician onsite and consulted in the evaluation and care of this patient. The physician did have a face to face encounter with the patient.
[2020-02-04] MEDS ORDERED: ATIVAN IV ONE (23:24)
[2020-02-04 23:25] LABS: BASO# 0.06 X1000 (0.0-0.2); BASO% 0.6 % (0.0-0.8); EOS# 0.78 X1000 (0.0-0.7); EOS% 8.1 % (0.0-10.0); HEMATOCRIT 49.2 % (42.0-52.0); HEMOGLOBIN 15.8 g/dL (14.0-18.0); LYMPH# 1.63 X1000 (1.2-3.4); MCH 30.9 PG (27-31); MCHC 32.1 g/dL (33-37); MCV 96.1 FL (81-99); MONO# 0.78 X1000 (0.11-0.59); MONO% 8.1 % (1.7-9.3); MPV 9.8 FL (7.4-10.4); NEUT# 6.34 X1000 (1.4-6.5); NEUT% 66.2 % (42.2-75.2); PLT 287 X1000 (130-400); RBC 5.12 XMIL (4.7-6.1); RDW 14.1 % (11.5-14.5); WBC 9.59 X1000 (4.8-10.8)
[2020-02-04 23:42] LABS: ALLEN TEST YES; BE -1.9 mmoll (-3.0-3.0); BLOOD TYPE ARTERIAL; HCO3-(ACT) 23.4 mmoll (20.0-26.0); METHB 0.5 % (0.0-1.5); O2(CT) 22.4 mL/dL (15.0-23.0); O2HB 96.7 % (95.0-99.0); PO2(98.6) 104 mmHg (60-100); SAMPLE BLOOD; THB 16.4 g/dL (11.5-17.4); pH(98.6) 7.23 (7.35-7.45)
[2020-02-04 23:48] LABS: ALB/GLOB RATIO 1.4; ALBUMIN 4.1 g/dL (3.5-5.0); CALCIUM 9.3 mg/dL (8.8-10.2); CREATININE 1.3 mg/dL (0.7-1.2); TOTAL BILIRUBIN 0.34 mg/dL (0.20-1.00)
[2020-02-05] MEDS ORDERED: ATIVAN IV ONE (00:01)
[2020-02-05] MEDS ORDERED: LOPRESSOR IV ONE (00:38)
[2020-02-05] MEDS ORDERED: CATAPRES PO ONE (00:42)
[2020-02-05 01:45] LABS: MODALITY BI PAP; PCO2(98.6) 66 mmHg (35-45)
--- NOTE | 2020-02-05 01:51 | EKG Report ---
Test Performed on : 02/04/2020 11:00:51 PM Test Reason : CP Blood Pressure : / mmHG Vent. Rate : 150 BPM Atrial Rate : 150 BPM P-R Int : 154 ms QRS Dur : 080 ms QT Int : 270 ms P-R-T Axes : 076 194 063 degrees QTc Int : 426 ms Sinus tachycardia. Right superior axis deviation Abnormal ECG When compared with ECG of 07-DEC-2019 02:04, (Unconfirmed) ST elevation now present in Inferior leads Unconfirmed Result
--- NOTE | 2020-02-05 01:52 | EKG Report ---
Test Performed on : 02/05/2020 00:28:21 AM Test Reason : POSSIBLE A-FIB Blood Pressure : / mmHG Vent. Rate : 143 BPM Atrial Rate : 144 BPM P-R Int : 148 ms QRS Dur : 090 ms QT Int : 326 ms P-R-T Axes : 082 215 065 degrees QTc Int : 503 ms Sinus tachycardia. Right superior axis deviation Pulmonary disease pattern Right ventricular hypertrophy Abnormal ECG When compared with ECG of 04-FEB-2020 23:00, (Unconfirmed) No significant change was found Unconfirmed Result
[2020-02-05] MEDS ORDERED: TYLENOL PO PRN (03:03)
[2020-02-05] MEDS ORDERED: ROBITUSSIN-AC PO PRN (03:28)
[2020-02-05] MEDS ORDERED: NS 1,000 ML IV SCH (03:37)
[2020-02-05] MEDS: DUONEB (A & A) INH SCH ×4 (04:20→21:01)
--- NOTE | 2020-02-05 05:21 | Diag Imaging Result Doc PS360 ---
EXAM: CHEST-PORTABLE HISTORY: cough TECHNIQUE: Single view COMPARISON: 01/04/2020 FINDINGS: The lungs are well expanded. The heart is not enlarged. The vessels are not distended. There are no infiltrates. No effusion identified. IMPRESSION: Negative exam. Electronically signed by Pawan Wiley 02/05/2020 5:18 AM
[2020-02-05] MEDS: SOLU-MEDROL IV SCH ×3 (05:57→21:48)
[2020-02-05 06:28] LABS: ALLEN TEST YES; BE -1.8 mmoll (-3.0-3.0); BLOOD TYPE ARTERIAL; HCO3-(ACT) 23.5 mmoll (20.0-26.0); METHB 1.1 % (0.0-1.5); O2(CT) 22.4 mL/dL (15.0-23.0); O2HB 97.7 % (95.0-99.0); PCO2(98.6) 50 mmHg (35-45); PO2(98.6) 286 mmHg (60-100); SAMPLE BLOOD; SAO2 100.1 % (95.0-100.0); THB 15.8 g/dL (11.5-17.4); pH(98.6) 7.31 (7.35-7.45)
[2020-02-05 06:29] LABS: MODALITY BI PAP
--- NOTE | 2020-02-05 08:15 | HISTORY AND PHYSICAL ---
CHIEF COMPLAINT: Shortness of breath. HISTORY OF PRESENT ILLNESS: This is a 69-year-old male, who has known COPD. He was recently admitted to our service related to COPD with exacerbation. He has a past medical history of gout, chronic renal insufficiency, and COPD. Apparently, EMS arrived and he was short of breath with increased work of breathing, his saturations were between the 70s and 80s. He was started on oxygen. His work of breathing began to deteriorate. He was started on CPAP and I believe he saw his PCP today, was given a steroid injection. In the emergency room, he was given some Ativan, he was resting comfortably on the BiPAP, however, he was fairly lethargic during the interview. He denied fever, chills, chest pain, headache, nausea, vomiting. Apparently, he had been taking social distancing precautions. His chest x-ray was obtained, which showed chronic COPD changes, no infiltrates, effusions, or edema. Laboratory data was grossly normal other than his ABG, which showed a respiratory acidosis. He will be admitted for further evaluation and treatment. PAST MEDICAL HISTORY: See HPI. PREVIOUS SURGICAL HISTORY: Left knee arthroscopy. ALLERGIES: Iodine and shellfish. SOCIAL HISTORY: Former smoker, no alcohol or illicit drugs. FAMILY HISTORY: Positive for coronary artery disease in the mother. CURRENT MEDICATIONS: Tylenol 650 p.o. q.6 p.r.n., Ventolin 2 puff inhalation q.6 p.r.n., allopurinol 300 mg p.o. daily, Symbicort 80/4.5 two puff inhalation b.i.d., Zyrtec 10 mg p.o. daily, and Virtussin AC 10/100 10 mL p.o. q.6 p.r.n. REVIEW OF SYSTEMS: A 14-point review of systems conducted with the patient, pertinent positives listed above in the HPI. All other systems reviewed and found to be negative. PHYSICAL EXAMINATION: VITAL SIGNS: Temperature 99.2 degrees, pulse 113, respirations 22, blood pressure 200/142, oxygen saturation 98% on BiPAP. GENERAL: Obese, 69-year-old male lying in the ER stretcher. He is lethargic but does awake to command. He is alert and oriented x3. HEENT: Head is atraumatic, normocephalic. Pupils equal, round and reactive to light. Extraocular eye movements intact. Sclera is anicteric. Conjunctiva is pink. Oral mucosa is dry. NECK: Supple. No JVD. No thyromegaly. Trachea is midline. No cervical lymphadenopathy. CARDIAC: S1, S2 appreciated. No murmurs, gallops, rubs. LUNGS: Scattered expiratory wheezes. No rhonchi, no rales. Symmetric rise and fall of respirations. ABDOMEN: Protuberant, soft, nondistended, nontender. Bowel sounds present in all 4 quadrants normoactive. No pulsatile mass. No organomegaly. EXTREMITIES: Trace edema bilaterally. No clubbing or cyanosis. Two plus pedal pulses bilaterally. GENITOURINARY: No bladder distention. Patient voids. Otherwise deferred. NEUROLOGICAL: Lethargic related to receiving Ativan in the emergency room. He is alert and oriented x3. No focal motor deficits, otherwise nonfocal examination. DIAGNOSTIC DATA: Chest x-ray: No effusions, infiltrates, or edema. Chronic COPD changes. LABORATORY DATA: CBC within normal limits. D-dimer elevated at 1.60, however, it was also elevated on previous exam. ABG: pH 7.23, pCO2 66, pO2 104, bicarbonate 23.4. Sodium 139, potassium 5, chloride 100, carbon dioxide 27, BUN 16, creatinine 1.3, glucose 126. ASSESSMENT AND PLAN: 1. Chronic obstructive pulmonary disease with exacerbation. 2. Gout. 3. Chronic renal insufficiency. 4. Hypercapnic respiratory failure. 5. Respiratory acidosis. PLAN: Admit patient to [facility] on BiPAP, continue low-dose steroids x3 doses, normal saline at 70 mL/h. Continue home medications. A V/Q scan was ordered by the emergency room, will monitor. Recheck ABGs. Further recommendations based on clinical course. Dictated by MARCO ANTONIO Green for Adair Rodas MD I have performed a face to face diagnostic evaluation. Labs/xrays-reviewed. Exam- Chest- rhonchi, CV- regular, Abd- soft. A/P- COPD Exacerbation- Admit, BIPAP, duo nebs, IV solumedrol.. Dr. Rodas cc: MARCO ANTONIO Green MD [facility]
[2020-02-05] MEDS: ZYLOPRIM PO SCH (08:45)
[2020-02-05] MEDS: ZYRTEC PO SCH (08:46)
[2020-02-05] MEDS: SYMBICORT 80/4.5 MICROGM INHALER INH SCH ×2 (09:28→21:01)
[2020-02-05] MEDS ORDERED: PRILOSEC PO ONE (12:33)
--- NOTE | 2020-02-05 13:01 | Diag Imaging Result Doc PS360 ---
EXAM: LUNG SCAN / VQ HISTORY: cough,sob TECHNIQUE: Nuclear medicine perfusion lung scan COMPARISON: Recent plain film FINDINGS: 5.7 mCi technetium MAA given intravenously for the perfusion images. No wedge shaped perfusion defect. IMPRESSION: No evidence of a pulmonary embolus. Electronically signed by Pawan Wiley 02/05/2020 12:58 PM
--- NOTE | 2020-02-05 13:05 | PROGRESS NOTE ---
DATE: 02/05/2020 INTERVAL HISTORY: No acute events overnight. Mr. Rodas tolerated BiPAP well and he had significant improvement in his respiratory acidosis. SUBJECTIVE: He denies currently chest pain, chest pressure, palpitation. His shortness of breath has improved. He denies any nausea, vomiting, abdominal pain. His primary care doctor had tested him for a COVID-19 yesterday. However, he denies any fever, sick contacts. He has not traveled outside. VITAL SIGNS: Temperature 97.8 degrees, pulse 101, respiratory rate 20, blood pressure 123/78, he is saturating 99 to 100 percent on nasal cannula. PHYSICAL EXAMINATION: General: Not in acute distress. He is morbidly obese. HEENT: Oral cavity is moist. Lungs: Air entry bilaterally equal. He has end-expiratory wheezes bilaterally. No rhonchi or crackles. Cardiovascular: S1, S2 normal. No murmur or gallop. Abdomen: Soft, obese, nontender. No hepatosplenomegaly. Extremity: No lower extremities edema. Neurologic: He is alert and oriented x3. He is not in distress. LABORATORY DATA: Suggestive of WBC 9.5. His ABG suggests pH 7.31, pCO2 50, PO2 286 on 60% BiPAP. No BMP today. ASSESSMENT: 1. Acute bronchitis leading to acute exacerbation of chronic bronchitis with suspicion of chronic obstructive pulmonary disease. 2. Acute hypoxic, hypercapnic respiratory failure. 3. History of gout. 4. Remote history of smoking. 5. History of allergies. PLAN: 1. Continue inhaled bronchodilators, intravenous steroids. Add azithromycin. 2. He would need outpatient lung function test and probably sleep studies. 3. We discussed about scheduled Symbicort as compared to as needed that he should be taking at home as well as taking both albuterol and ipratropium inhaler. 4. I spent around 20 minutes in explaining to the patient's on the phone about his clinical condition, pathophysiology and plan. All of her questions were answered. 5. I will continue monitor patient in PVC, start him on steroid-induced ulcer prophylaxis and DVT prophylaxis. cc: Nacho Yao MD
[2020-02-05] MEDS: ZITHROMAX PO SCH (15:30)
[2020-02-05] MEDS: LOVENOX SUBQ SCH (15:32)
[2020-02-06] MEDS: DUONEB (A & A) INH SCH ×3 (05:20→21:31)
[2020-02-06 05:58] LABS: BASO# 0.01 X1000 (0.0-0.2); BASO% 0.1 % (0.0-0.8); EOS# 0.01 X1000 (0.0-0.7); EOS% 0.1 % (0.0-10.0); HEMATOCRIT 41.2 % (42.0-52.0); HEMOGLOBIN 13.2 g/dL (14.0-18.0); LYMPH# 0.93 X1000 (1.2-3.4); MCH 31.4 PG (27-31); MCV 98.1 FL (81-99); MONO# 0.61 X1000 (0.11-0.59); MONO% 3.9 % (1.7-9.3); MPV 10.2 FL (7.4-10.4); NEUT# 13.99 X1000 (1.4-6.5); NEUT% 89.9 % (42.2-75.2); PLT 262 X1000 (130-400); RDW 14.5 % (11.5-14.5); WBC 15.55 X1000 (4.8-10.8)
[2020-02-06] MEDS: PRILOSEC PO SCH (06:08)
[2020-02-06 06:22] LABS: CREATININE 1.5 mg/dL (0.7-1.2); POTASSIUM 5.2 mmol/L (3.5-5.1)
[2020-02-06] MEDS: SYMBICORT 80/4.5 MICROGM INHALER INH SCH ×2 (06:46→19:42)
[2020-02-06 06:55] LABS: LYMPHS 6 % (21-51); MONO 2 % (1-9); SEGS 92 % (42-75)
[2020-02-06] MEDS: PREDNISONE PO SCH (09:11)
[2020-02-06] MEDS: ZITHROMAX PO SCH (09:12)
[2020-02-06] MEDS: ZYLOPRIM PO SCH (09:12)
[2020-02-06] MEDS: ZYRTEC PO SCH (09:12)
[2020-02-06 10:24] LABS: ALLEN TEST YES; BE -3.8 mmoll (-3.0-3.0); BLOOD TYPE ARTERIAL; HCO3-(ACT) 21.8 mmoll (20.0-26.0); METHB 1.2 % (0.0-1.5); O2(CT) 17.8 mL/dL (15.0-23.0); O2HB 93.1 % (95.0-99.0); PCO2(98.6) 39 mmHg (35-45); PO2(98.6) 65 mmHg (60-100); SAMPLE BLOOD; THB 13.6 g/dL (11.5-17.4); pH(98.6) 7.35 (7.35-7.45)
[2020-02-06 10:27] LABS: MODALITY ROOM AIR
[2020-02-06] MEDS ORDERED: SYSTANE EYE DROPS BOTH EYES PRN (11:14)
--- NOTE | 2020-02-06 13:06 | PROGRESS NOTE ---
DATE: 02/06/2020 INTERVAL HISTORY: No acute events overnight. Mr. Rodas says that he had a coughing spell overnight and was not able to sleep. He also says that he was wheezing after the coughing spells, but later on, he started feeling better. I discussed with him about his normalization of pH, improving oxygen and carbon dioxide. He says his kidney dysfunction is chronic. His V/Q scan was negative. OBJECTIVE: Current Vital Signs: Temperature 98.4 degrees, pulse 100, respiratory rate 18, blood pressure 166/81, he is saturating 97% on room air. General: Not in acute distress. He is obese. HEENT: Oral cavity is moist. Lungs: Air entry bilaterally equal. Mild end-expiratory wheezes. No rhonchi or crackles. Heart: S1, S2 normal. No murmur, rub, or gallop. Abdomen: Obese, soft, nontender. No hepatosplenomegaly. Extremities: No lower extremity edema. Neurologic: He is alert and oriented x3. He is able to reposition himself in the bed without any difficulty. LABORATORY DATA: WBC 15,000 with 0% eosinophil count, likely steroid-induced leukocytosis, hemoglobin 13.2, platelets 262,000. PH of 7.35, pCO2 of 39, PO2 of 65 on room air. He has sodium of 131, potassium 5.2, BUN of 33, creatinine 1.5. MICROBIOLOGY: No positive microbiological data so far. IMAGING: Lung V/Q scan did not have any evidence of pulmonary embolism. ASSESSMENT AND PLAN: 1. Acute bronchitis leading to acute exacerbation of suspected chronic bronchitis leading to acute hypoxic hypercapnic respiratory failure. Continue to cycle bilevel positive airway pressure while asleep and at nighttime, and nasal cannula during daytime. Continue inhaled albuterol/ipratropium nebulization, inhaled Symbicort, and current dose of oral steroids. Continue azithromycin, and follow up sputum culture results. He would need outpatient lung function test and allergy test. Follow up Coronavirus Disease 2019 testing performed as outpatient, though my suspicion is extremely less. 2. Others. Continue home allopurinol for history of chronic gout, cetirizine for allergies, enoxaparin for deep venous thrombosis prophylaxis, omeprazole for steroid-induced ulcer prophylaxis. I will give him Systane eyedrops and olopatadine eyedrops for itchy eyes. 3. Disposition. I will transfer the patient to routine medical floor, and monitor him for at least 24 hours considering his ongoing wheezing. He was allowed to ask questions. His questions were answered. 35 minutes have been spent. cc: Nacho Yao MD
[2020-02-06] MEDS: PATANOL 0.1% BOTH EYES SCH ×2 (13:58→23:12)
[2020-02-06] MEDS: LOVENOX SUBQ SCH (17:15)
[2020-02-06] MEDS: VENTOLIN HFA INH PRN (21:25)
[2020-02-07 06:10] LABS: ALLEN TEST YES; BE -1.9 mmoll (-3.0-3.0); BLOOD TYPE ARTERIAL; HCO3-(ACT) 23.4 mmoll (20.0-26.0); METHB 1.2 % (0.0-1.5); O2(CT) 19.5 mL/dL (15.0-23.0); O2HB 97.2 % (95.0-99.0); PCO2(98.6) 35 mmHg (35-45); PO2(98.6) 178 mmHg (60-100); SAMPLE BLOOD; pH(98.6) 7.41 (7.35-7.45)
[2020-02-07 06:12] LABS: MODALITY ROOM AIR
[2020-02-07] MEDS: PRILOSEC PO SCH (06:47)
[2020-02-07] MEDS: VENTOLIN HFA INH PRN (08:18)
[2020-02-07] MEDS: SYMBICORT 80/4.5 MICROGM INHALER INH SCH (08:18)
[2020-02-07] MEDS: DUONEB (A & A) INH SCH (09:47)
[2020-02-07] MEDS: PREDNISONE PO SCH (10:30)
[2020-02-07] MEDS: PATANOL 0.1% BOTH EYES SCH (10:30)
[2020-02-07] MEDS: ZYLOPRIM PO SCH (10:31)
[2020-02-07] MEDS: ZYRTEC PO SCH (10:31)
[2020-02-07] MEDS: ZITHROMAX PO SCH (10:31)
[2020-02-07 15:16] VITALS: BP 139/76
[2020-02-07] MEDS ORDERED: ADVAIR 250/50 DISKUS INH SCH (19:30)
--- NOTE | 2020-02-08 07:50 | DISCHARGE SUMMARY ---
ADMISSION DATE: 02/05/2020 DISCHARGE DATE: 02/07/2020 DISCHARGE DISPOSITION: Home. DISCHARGE CONDITION: Hemodynamically stable. He denies any chest pain. He is not short of breath. He is not wheezing. We discussed about using Advair on a regular basis, disregard of symptoms. We discussed about adding ipratropium to his albuterol inhaler. We discussed about following up with a rerecording mixer for lung function tests and sleep study. We discussed about taking omeprazole for steroid-induced ulcer prophylaxis. I answered all of his questions. DISCHARGE DIAGNOSES: 1. Acute bronchitis. 2. Acute exacerbation of suspected chronic bronchitis. 3. Acute hypoxic, hypercapnic respiratory failure. OTHER DIAGNOSES: 1. Chronic kidney dysfunction. 2. Gout. 3. Seasonal allergies. DISCHARGE MEDICATIONS: 1. Allopurinol 300 mg daily. 2. Guaifenesin 200 mg every 12 hours. 3. Advair 250/50 inhaler 1 puff inhaled b.i.d., 1 inhaler with 1 refill has been prescribed. 4. Azithromycin 500 mg daily for 3 days. 5. Ipratropium-albuterol sulfate 1 puff inhalation every 4 hours as needed for shortness of breath. 6. Omeprazole 40 mg daily. 7. Prednisone on a 7 day taper, starting from 40 mg to 10 mg. 8. Acetaminophen 650 mg every 6 hours. 9. Cetirizine 10 mg daily. VITALS: At the time of discharge, temperature 97.9 degrees, pulse 83, respiratory rate 20, blood pressure 139/76, saturating 95% on room air. PHYSICAL EXAMINATION: At the time of discharge, Mr. Rodas is not in acute distress. Oral cavity was moist. Lungs: Air entry bilaterally equal. No wheeze, rhonchi, or crackles. Cardiovascular: S1, S2 normal. No murmur, rub, or gallop. Abdomen was soft, nontender, obese. No lower extremity edema. He was alert and oriented x3. LABS: At the time of admission and discharge, WBC 15,000 with 0.1% eosinophil count suggestive of steroid-induced leukocytosis, hemoglobin 13.2, platelets 262,000. On presentation, his pH was 7.23, pCO2 was 66, PO2 was 104. At the time of discharge, his pH was 7.41, pCO2 was 35, and PO2 was 178 on room air. His BUN is 33, creatinine 1.5. Sputum culture and blood culture did not have any growth. IMAGING: During the hospital admission, chest x-ray on February 03 did not have any acute pathology. Lung V/Q scan did not have any evidence of pulmonary embolism. Electrocardiogram on presentation had sinus tachycardia, right superior axis deviation, pulmonary disease pattern, and right ventricular hypertrophy. HOSPITAL COURSE SUMMARY: Mr. Rodas is a 69-year-old, man who presented on 02/05/2020 with chief complaints of shortness of breath. Apparently, he has been admitted to the hospital at least twice in the last 2 months for similar complaints. He had gradually worsening shortness of breath over 48 to 72 hours prior to presentation. When the EMS arrived, he was found to have oxygen saturation of 70s to 80s, and he was significantly wheezing. He had been seen in the emergency room 24 hours prior to presentation and was given a steroid shot and Z-Joselo, which did not help. On arrival to the emergency room, he was found to have a temperature of 99.6 degrees, pulse of 149, respiratory rate of 32, blood pressure of 210/142. His oxygen saturation was 98% on BiPAP. His chest x-ray was unremarkable. He was diagnosed with hypercapnic respiratory failure due to acute bronchitis and was admitted for further management. He was treated with BiPAP and cycling of BiPAP with nasal cannula, inhaled bronchodilators, systemic intravenous steroids, and azithromycin. His blood and sputum culture data did not have any growth. Later on, he was transitioned to oral steroids. At the time of discharge, he is breathing well on room air without any hypoxia or hypercapnia so he will be discharged on a steroid taper of at least 7 days, oral azithromycin. He was instructed to use Advair twice daily irrespective of his symptoms since he previously was only using it as needed. He was also advised to have a followup with a rerecording mixer for lung function and sleep apnea evaluation. Twenty-five minutes were spent discharging the patient. Covid-19 test performed at his outpatient provider doctor's office was negative. All of the patient's questions have been answered. cc: Nacho Yao MD
== END 2020-02-07 16:29 | disposition home or self-care (01) | DRG 190 ==
LOC: SUPCPDRO → ED 22:47 → 2N 02-05 03:23 → SUATTDRO 02-05 03:23 → 2N 02-05 04:12 → 4N 02-06 14:21
PROVIDERS: ATTEND Internal Medicine